=== PATIENT | female | born 1955 | race Caucasian/White ===

== ENCOUNTER 2016-12-16 12:47 | Inpatient (IN) | payer OTHER ==
[2016-12-16] VITALS (9 sets, daily range): BP systolic 176–212; BP diastolic 97–131; PULSE 81–113; RESP 18–35; O2SAT 92–100
[~2016-12-16] VITALS: Ht 157.5 cm; Wt 92.9 kg
--- NOTE | 2016-12-16 14:17 | ED.REPORT ---
HPI-Dyspnea / Wheezing Date of Service Dec 16, 2016 ED Provider: Rinku Francis Randy RIVERA Pt is a 61 y/o female w/ a hx of uncontrolled HTN, CVA, TIA, presenting to the ED c/o SOB onset 1 week ago. She c/o associated lower extremity edema, abdominal distention, dyspnea on exertion, orthopnea. She denies CP, abdominal pain, extremity pain, fever, chills, cough. She has no history of CAD or heart failure. She experienced a CVA years ago which was thought to be caused by uncontrolled hypertension. She was subsequently placed on antihypertensives but lost weight and took herself off of them. She does state that she has been very stressed recently. Nursing Notes Stated Complaint: SOB,BP HIGH Chief Complaint: Respiratory Distress Nursing Notes Reviewed: Yes Allergies: Coded Allergies: No Known Allergies (Unverified , 12/16/16) Scheduled Aspirin (Aspirin) 81 Mg Tablet 81 MG PO DAILY General Time Seen by MD: 14:15 Chief Complaint Shortness of breath Hx Obtained From: Patient Arrived By: Walk-in Sudden in Onset?: No Onset Occurred: 1 week ago Symptom Duration: Intermittent Severity: Current: No pain currently Severity: Maximum: No pain Similar Sx Previous: No Past Medical History Past Medical History TIA CVA Uncontrolled hypertension Past Surgical History Smoking History Never Smoker Social History Alcohol Use: Denies alcohol use Drug Use: Denies drug use Other Social History: Good social support Ambulatory Status Independent Review of Systems Constitutional: Denies: Chills, Fever Respiratory: Reports: Dyspnea on exertion, Shortness of breath, Denies: Non-productive cough Cardiovascular: Reports: Dyspnea on exertion, Edema, Orthopnea, Denies: Chest pain Musculoskeletal: Reports: Extremity swelling, Denies: Extremity pain Complete sys rev & neg: except as marked. GI: Denies: Abdominal pain, Diarrhea, Nausea, Vomiting Physical Exam Initial Vital Signs Vital Signs (First) Date Time Temp Pulse Resp B/P Pulse Ox O2 Delivery O2 Flow Rate FiO2 12/16/16 12:57 36.7 113 35 185/131 94 Room Air Initial VS: Reviewed, Vital signs abnormal Head / Eyes: Atraumatic, Normocephalic, PERRL ENT: Mucous membranes moist, Conjunctiva normal, No scleral icterus Extremities: Vascular intact, Neuro intact, No swelling, No tenderness Skin: Warm, Dry, No cyanosis Neurologic: Alert, Oriented, Nonfocal Psychiatric: Mood/affect normal, Behavior normal, Normal thought content General/Constitutional: Awake, Alert, No acute distress, Cooperative, Not toxic appearing Neck: Atraumatic, Supple, No meningismus, Full range of motion Respiratory / Chest: Atraumatic, No respiratory distress, No rhonchi, No wheezing, No retractions, No stridor, No chest tenderness, No chest wall deformity, No crepitus Bibasilar rales present Cardiovascular: Regular rhythm, No gallop, No rubs, Cap refill not delayed, Peripheral circulation NL Heart Rate / Rhythm: Positive: Tachycardia Heart Sounds / Murmur: Positive: Systolic murmur present.. (II/, left upper sternal border) Lower Ext Edema: Positive: Bilateral 3+, Pitting Edema extends to upper abdomen Abdomen: Atraumatic, Soft Bowel Sounds / Distention: Positive: Distention severe Interpretation & Diagnostics Lab Results Interpretation Result Diagram: 12/17/16 0612 12/17/16 0612 Test 12/16/16 14:47 12/16/16 17:50 Prothrombin Time 12.4sec (8.1-12.5) Prothromb Time International Ratio 1.16ratio Activated Partial Thromboplast Time 27.4sec (22.8-33.0) Total Bilirubin 1.2mg/dL (0.0-1.2) Aspartate Amino Transf (AST/SGOT) 22U/L (0-50) Alanine Aminotransferase (ALT/SGPT) 14U/L (0-32) Alkaline Phosphatase 97U/L (25-165) Total Protein 7.8g/dL (6.4-8.4) Albumin 3.8g/dL (3.4-5.0) Procalcitonin 0.06ng/mL (0.00-0.08) Thyroid Stimulating Hormone (TSH) 4.910uIU/mL (0.450-4.500) Hold Carpenter Top Tube Received (Received) Urine Color Dark yellow (YELLOW) Urine Appearance Hazy (CLEAR,HAZY) Urine pH 6.0 (5.0-8.0) Urine Specific [place] 1.030 (1.003-1.035) Urine Protein 100mg/dL (NEG,TRACE) Urine Glucose (UA) Negativemg/dL (NEGATIVE) Urine Ketones Tracemg/dL (NEGATIVE) Urine Occult Blood Small (NEGATIVE) Urine Nitrite Negative (NEGATIVE) Urine Bilirubin Negative (NEGATIVE) Urine Urobilinogen Normalmg/dL (NORMAL) Urine Leukocyte Esterase Small (NEGATIVE) Urine RBC 0-2/hpf (0-2) Urine WBC 0-5/hpf (0-5) Urine Epithelial Cells Few/hpf (NONE-MOD) Urine Crystals None seen (NONE SEEN) Urine Bacteria Few/hpf (NONE-FEW) Urine Hyaline Casts None/lpf (NONE) Urine Granular Casts None seen (NONE SEEN) Urine Waxy Casts None seen (NONE SEEN) Urine Red Blood Cell Casts None seen (NONE SEEN) Urine White Blood Cell Casts None seen (NONE SEEN) Urine Mucus Present (None Seen) Urine Trichomonas None seen (NONE SEEN) Urine Yeast None (NONE SEEN) Urinalysis Comment None Urine Culture Reflexed Indicated ECG Interpretation ECG Interpretation: Sinus tachycardia rate 105 LVH with secondary repol abnormality Anterior Q waves Time: 14:38 Interpreted by: ED physician Normal ECG Interpretation: No acute ischemic changes X-Ray Chest Interpretation Chest Xray Interpretation: IMPRESSION: Right lower lobe infiltrate with effusion. Pneumonia would be most likely. Followup to clearing to rule out underlying mass is suggested. Chest x-ray in 2 months would be useful. Dictated by: Toan Arias M.D. on 12/16/2016 at 15:34 Approved by: Toan Arias M.D. on 12/16/2016 at 15:35 View: Portable, 1 view Interpretation / Wet Read by: Interpret - Radiologist Re-Eval/Medical Decision Med Decision/Clinical Course 61-year-old female with a history of previous stroke and untreated hypertension (patient has not followed up with a provider after running out of her medications) presents with increasing shortness of breath and bilateral abdominal and lower extremity edema. She notes she is unable to sleep lying flat and admits to paroxysmal nocturnal dyspnea. Her chest x-ray, proBNP, and physical exam are all consistent with congestive heart failure. I advised the patient she will need to be admitted with an echocardiogram to further evaluate her heart and try to figure out why she developed this cardiomyopathy. Initially blood pressure was very elevated and she was treated with Nitropaste, lisinopril 40 mg, and Lasix 40 mg IV. I avoided beta blockers in the setting of acute heart failure. We do not have a previous record of what her kidney function is but it appears that she has acute kidney injury, likely secondary to congestive heart failure and decreased renal perfusion. Her troponin was elevated which I believe is related to CHF. EKG shows sinus tachycardia without evidence of ST changes. She is admitted for further evaluation and treatment. She is agreeable to admission Re-Evaluation/Progress : Time of Eval: 16:08 Re-Evaluation/Progress Note: Pt rechecked. Informed pt of need for admission. Pt understands and agrees with plan for admission. All questions addressed. Consultation : Referral / Consult Name: Joan Lawton DO Consulted With: Hospitalist Call Returned at: 18:16 [employer] And Drug Research Scientist: Will see patient, Agrees with eval, Agrees with plan, Accepts admit Counseled Regarding: Diagnosis, Lab results, Need for admission Discharge & Departure Impression: Primary Impression: New onset of congestive heart failure Additional Impressions: Anasarca MAURI (acute kidney injury) Elevated troponin Hypertensive urgency Disposition: ADMITTED TO HOSPITAL Discharge Condition All VS Reviewed: Yes Condition: Stable Referrals: NOPCP (PCP) Kentonibfarhan Attestation Portions of this note were transcribed by Manny Naylor. I, Dr. Francis personally performed the history, physical exam and medical decision-making; I reviewed and confirmed the accuracy of the information in the transcribed note. Signed by Ninoska Cao, 12/16/16 - 1530 Rinku Francis DO Dec 16, 2016 14:17 MANNY NAYLOR Dec 16, 2016 15:06 ECG Interpretation ECG Interpretation: Sinus tachycardia rate 105 LVH with secondary repol abnormality Anterior Q waves Time: 14:38 Interpreted by: ED physician Normal ECG Interpretation: No acute ischemic changes X-Ray Chest Interpretation Chest Xray Interpretation: IMPRESSION: Right lower lobe infiltrate with effusion. Pneumonia would be most likely. Followup to clearing to rule out underlying mass is suggested. Chest x-ray in 2 months would be useful. Dictated by: Toan Arias M.D. on 12/16/2016 at 15:34 Approved by: Toan Arias M.D. on 12/16/2016 at 15:35 View: Portable, 1 view Interpretation / Wet Read by: Interpret - Radiologist Re-Eval/Medical Decision Re-Evaluation/Progress : Time of Eval: 16:08 Re-Evaluation/Progress Note: Pt rechecked. Informed pt of need for admission. Pt understands and agrees with plan for admission. All questions addressed. Consultation : Referral / Consult Name: Joan Lawton DO Consulted With: Hospitalist Call Returned at: 18:16 Food And Drug Research Scientist: Will see patient, Agrees with eval, Agrees with plan, Accepts admit Counseled Regarding: Diagnosis, Lab results, Need for admission Discharge & Departure Impression: Primary Impression: New onset of congestive heart failure Additional Impressions: Anasarca MAURI (acute kidney injury) Elevated troponin Disposition: ADMITTED TO HOSPITAL Discharge Condition All VS Reviewed: Yes Condition: Stable Referrals: NOPCP (PCP) Scribe Attestation Portions of this note were transcribed by Manny Naylor. I, Dr. Francis personally performed the history, physical exam and medical decision-making; I reviewed and confirmed the accuracy of the information in the transcribed note. Signed by Ninoska Cao, 12/16/16 - [id number] Rinku Francis DO Dec 16, 2016 14:17 MANNY NAYLOR Dec 16, 2016 15:06
[2016-12-16 15:00] LABS: BASOPHILS % (AUTO) 0.7 % (0-3); EOSINOPHILS % (AUTO) 0.3 % (0-5); MONOCYTES % (AUTO) 6.4 % (4-12); Mean Corpuscular Volume 96.7 fL (81-100); NEUTROPHILS % (AUTO) 83.1 % (40-74); Platelet Count 223 bil/L (150-400)
[2016-12-16 15:28] LABS: TROPONIN T 0.032 ug/L (0.0-0.011)
--- NOTE | 2016-12-16 15:37 | DRSVH ---
PROCEDURE: X-RAY CHEST, TWO VIEWS ([id number]) INDICATIONS: Short of breath TECHNIQUE: 2 views of the chest were acquired. COMPARISON: None none available in the PACS system.. FINDINGS: Surgical changes and devices: None. Lungs and pleura: There is a small right pleural effusion. No effusion appreciated on the left. There is patchy density in the right lower lung field with loss of some aeration. The appearance would be most consistent with pneumonia. Pulmonary vasculature is considered normal. Left lung is considered c lear. Mediastinum: Mediastinal contours are normal. Heart size is enlarged. Bones and chest wall: No suspicious bony abnormalities. Soft tissues appear unremarkable. IMPRESSION: Right lower lobe infiltrate with effusion. Pneumonia would be most likely. Followup to cl earing to rule out underlying mass is suggested. Chest x-ray in 2 months would be useful. Dictated by: Toan Arias M.D. on 12/16/2016 at 15:34 Approved by: Toan Arias M.D. on 12/16/2016 at 15:35
[2016-12-16] MEDS ORDERED: Furosemide 10 mg/mL 4 mL Inj IVPUSH ONE (16:10)
[2016-12-16] MEDS ORDERED: ASPI-973 PO (17:38)
--- NOTE | 2016-12-16 17:39 | NUR ---
Admit/meds Pt. reports to taking a laxative a couple of days ago; does not recall the dose or name of drug. Pt. states that she has not had a BM for the last 3 days. Pt. did not bring any medications with her. Med rec completed.
[2016-12-16 18:01] LABS: APPEARANCE,URINE HAZY (CLEAR,HAZY); COLOR,URINE DARK YELLOW (YELLOW); OCCULT BLOOD,URINE SMALL (NEGATIVE)
[2016-12-16 18:02] LABS: UROBILINOGEN,URINE NORMAL (NORMAL)
[2016-12-16] MEDS ORDERED: Lisinopril 40 Tablet PO ONE (18:15)
[2016-12-16] MEDS ORDERED: Nitroglycerin 2% 1 Gm Ointment TOPICAL SCH (18:15)
[2016-12-16] MEDS ORDERED: Alum-Mag Hydrox-Simeth 30 mL Suspension PO PRN (18:20)
[2016-12-16] MEDS ORDERED: Ondansetron 2 mg/mL 2 mL Inj IVPUSH PRN (18:20)
[2016-12-16] MEDS ORDERED: Polyethylene Glycol (PEG) 17 Gm Powder PO PRN (18:40)
[2016-12-16] MEDS ORDERED: Senna-Docusate 8.6-50 mg Tablet PO PRN (18:40)
[2016-12-16 19:10] LABS: INR 1.16 ratio
--- NOTE | 2016-12-16 19:11 | PCM.HPMED ---
Subjective Date of Service Dec 16, 2016 Primary Provider: Admitting Physician: Joan Lawton DO Primary Care Physician: Tomy Wyatt MD Attending Physician: Joan Lawton DO Admit Status: From the Emergency Department Chief Complaint: Exertional Dyspnea History of Present Illness: Pt is a 61 y/o female w/ a hx of uncontrolled HTN, CVA, TIA, presenting to the ED c/o SOB onset 1 week ago. She is completely lost to follow up. She states she has to work 130-150 hrs a week to amke ends meet and has a lot of issues, mainly financial with her children. She c/o associated lower extremity edema, abdominal distention, dyspnea on exertion, orthopnea. She does admit to having a less intense version of these symptoms She denies CP, abdominal pain, extremity pain, fever, chills, cough. She has no history of CAD or heart failure. She experienced a CVA years ago which was thought to be caused by uncontrolled hypertension. She was subsequently placed on antihypertensives but lost weight and took herself off of them that same year. She does state that she has been very stressed recently. Her daughter is with a downs baby and daughter's significant other has no job. Last bowel movement was 3 days ago , normally she has them every two days. Denies urinary symptoms, chest pain. When asked if she had DM II, she stated "probably". She has no residual symptoms from her stroke (states she had a stroke, ignored itr and went to work and then had a second one at work ten years ago.) Patient had never smoked but did have second hand smoking exposure for several years. She luke snot drink or do drugs. In the eR, troponin was 0.032[place] [address].EKG showed sinus tach. Review of Systems: All ROS neg except as stated above Allergies Coded Allergies: No Known Allergies (Unverified , 12/16/16) PMH CVA, HTN, TIA Surgical History Social History Hx Alcohol Use: No Hx Substance Use: No Smoking Status: Never Smoker Living Arrangement: with Family Exam Vital Signs Vital Sign - Last Date Time Temp Pulse Resp B/P Pulse Ox O2 Delivery O2 Flow Rate FiO2 12/16/16 18:26 36.2 102 22 206/123 98 Room Air Exam General: NAD HEENT: NCAT Vasc: Anasarca throughout, mainly abdomen, pelvic area, peripheral Heart: regularly irregular, neg for murmurs Lungs:R sided crackles and rales, neg for wheezing Abd: extremely distended, normal bowel sounds Ext: Positive for non pitting edema Psych: Positive for anxiety Neuro: No focal deficits, CN II- XII grossly normal Lab and Diagnostics Result Diagram: 12/16/16 1447 12/16/16 1447 X-Rays, CTs and MRIs [facility] Diagnostic Imaging Department [facility] [address] Patient Name: LEISA SPENCER MR#: [id number] Location: SED Ordering Phys: DOC, ED MD Date of Service: 12/16/16 1416 PROCEDURE: X-RAY CHEST, TWO VIEWS ([id number]) INDICATIONS: Short of breath TECHNIQUE: 2 views of the chest were acquired. COMPARISON: None none available in the PACS system.. FINDINGS: Surgical changes and devices: None. Lungs and pleura: There is a small right pleural effusion. No effusion appreciated on the left. There is patchy density in the right lower lung field with loss of some aeration. The appearance would be most consistent with pneumonia. Pulmonary vasculature is considered normal. Left lung is considered clear. Mediastinum: Mediastinal contours are normal. Heart size is enlarged. Bones and chest wall: No suspicious bony abnormalities. Soft tissues appear unremarkable. IMPRESSION: Right lower lobe infiltrate with effusion. Pneumonia would be most likely. Followup to clearing to rule out underlying mass is suggested. Chest x- ray in 2 months would be useful. Dictated by: Toan Arias M.D. on 12/16/2016 at 15:34 Approved by: Toan Arias M.D. on 12/16/2016 at 15:35 12-lead ECG Sinus Tachy Assessment & Plan 61 yo WF with prev Stroke, TIA, HTN presents with Eelvated trops, Elevated BNP, HTN> 200/100, Anasarca, acute kidney injury Acute diagnoses POA: Acute renal injury: Monitor with AM labs, , unknown cause, will order FE Na. Likely pre-renal Acute Heart Failure of unkown type: -- Appears to be right sided, will diurese with Lasix 40 mg IV TID the goal of at least 2 L daily. She is given 40 mg in the ED, will give another 40 upon arrival to floor. -- Nitroglycerin bid paste, morphine 2 mg daily, morphine 4 hours when necessary for dyspnea, oxygen as needed, daily weights, accurate ins and outs, elevate head of the bed -- Echocardiogram ordered for tomorrow a.m. -- Trend troponins -- Telemonitoring -- fluid restriction of 1500 cc -- Lipid panel, A1c ordered: We will consider statin based on lipid panel -- Baseline ABG is ordered Anasarca -- Right sided heart failure vs. Liver failure, LFT are WNL. -- Continue to monitor -- Patient says she is starting to feel better Elevated troponins: These are liekly due to CHF -- Trend cardiac enzymes --Telemonitoring Acute hypertensive urgency: -- She is given lisinopril 20 mg in the emergency room by mouth -- Metoprolol 12.5 twice a day -- Continue lisinopril 20 mg daily Anxiety present at admission -- Morphine will help with this -- 1 time dose of Ativan 0.5 mg PO is given upon arrival to floor Chronic Diagnoses HTN: As above CVA: Will start statin as discussed above -- Continue daily aspirin CODE STATUS: CPR okay but she does not want mechanical ventilation Alternate decision-maker: Mom Pain Evaluation: Adequate Pain Control GI Prophylaxis: H2 sera Resuscitation Status: CPR: Attempt Resuscitation (does not want intubation or ventilaiton) Joan Lawton DO Dec 16, 2016 19:11
[2016-12-16 19:33] LABS: Magnesium 1.9 mg/dL (1.6-2.6)
[2016-12-16] MEDS ORDERED: Labetalol 5 mg/mL 4 mL Inj IVPUSH ONE (19:35)
[2016-12-16] MEDS: Furosemide 10 mg/mL 4 mL Inj IVPUSH SCH (19:57)
[2016-12-16] MEDS: Heparin 5,000 Unit/mL Inj SUBQ SCH (20:05)
[2016-12-16] MEDS ORDERED: LORazepam 0.5 mg Tablet PO ONE (21:05)
--- NOTE | 2016-12-16 21:28 | DRSVH ---
PROCEDURE: CT BRAIN WITHOUT CONTRAST ([id number]) INDICATIONS: hypertensive urgency TECHNIQUE: Noncontrast 4.5 mm thick angled axial sections acquired from the foramen magnum to the vertex, with c oronal reformats. COMPARISON: None. FINDINGS: Image quality: Good CSF spaces: Basal cisterns are patent. No extra-axial fluid collections. The ventricles are symmet paul in size and shape. Brain: No intracranial bleeds or masses. There is decreased attenuation in white matter with loss o f fenton-white junction interface and a portion of the right frontal lobe. This is consistent with old ischemic change. There is cerebral volume loss for age, with resultant ventricular and sulcal promine nce. There are periventricular and deep white matter chronic small vessel change with loss of fenton-w ngozi matter interface is present in the right frontal lobe and moderate amount of small vessel ischem ic change changes in white matter are present.. There is intracranial internal carotid artery athero sclerosis. Skull and face: Calvarium and visualized facial bones appear intact, without suspicious lesions. Sinuses: Visualized sinuses and mastoids are clear. IMPRESSION: No acute intracranial abnormality is seen. Dictated by: Toan Arias M.D. on 12/16/2016 at 21:24 Approved by: Toan Arias M.D. on 12/16/2016 at 21:27
--- NOTE | 2016-12-16 21:53 | ABG ---
DateTimeAnalyzed 21:50:00 -_ pH ____7.432 - 7.350 7.450 pCO2 ___38.5__ -mmHg 35.0 45.0 pO2 ___51.6__ -mmHg 69.0 116 HCO3- ___25.2__ -mmol/L 22.0 26.0 ABE ____1.4__ -mmol/L -2.0 2.0 tHb ___11.4__ -g/dL O2Hb ___85.6__ -% COHb ____1.7__ -% MetHb ____0.7__ -% sO2 ___87.7__ -% FIO2 ___21.0__ -% Drawn By MK - Date/Time Notified____ 21:52:00 -_ Notified By MK - Notified Whom Jaacob Miller RN -____ B 758 -mmHg tO2 ___13.8__ -Vol% Torsten test _Positive -
[2016-12-16] MEDS: Sodium Chloride LOK Flush 10 mL Syringe IVFLUSH SCH (22:28)
[2016-12-16 23:01] LABS: TROPONIN T 0.042 ug/L (0.0-0.011)
[2016-12-16 23:09] LABS: Creatine Kinase 108 U/L (21-215)
[2016-12-17] VITALS (9 sets, daily range): BP systolic 162–188; BP diastolic 81–94; PULSE 79–97; RESP 12–17; O2SAT 93–98
--- NOTE | 2016-12-17 03:43 | NUR ---
BP Pts BP was quite elevated on arrival to floor. Md ordered IV lasix, Po metoprolol, IV metoprolol, and IV Labetalol. Pts BP has decreased after receiving meds but has remained below 200/100. Last B/P was 163/86. Pt reports feeling immensely better than when she came in. Or first arriving to floor Pt was unable to find a comfortable position other than standing in the the tripod position. Now Pt is comfortable laying on her side on couch.
[2016-12-17 04:19] LABS: Creatine Kinase 116 U/L (21-215)
[2016-12-17 04:33] LABS: TROPONIN T 0.038 ug/L (0.0-0.011)
--- NOTE | 2016-12-17 04:37 | NUR ---
Critical Values Pts troponin peeked at 0.042 and trended down on 3rd draw to 0.038. CKMB also elevated at 5.5. Md notified.
[2016-12-17] MEDS: Heparin 5,000 Unit/mL Inj SUBQ SCH ×3 (05:03→20:17)
[2016-12-17 06:39] LABS: BASOPHILS % (AUTO) 1.1 % (0-3); EOSINOPHILS % (AUTO) 2.3 % (0-5); MONOCYTES % (AUTO) 10.4 % (4-12); Mean Corpuscular Hemoglobin 30.5 pg (27.0-35.0); Mean Corpuscular Volume 97.1 fL (81-100); NEUTROPHILS % (AUTO) 73.3 % (40-74); Platelet Count 176 bil/L (150-400)
[2016-12-17] MEDS ORDERED: Potassium Chloride 20 mEq SR Tablet PO ONE (07:35)
--- NOTE | 2016-12-17 08:34 | PCM.PNMED ---
Subjective Date of Service Dec 17, 2016 Subjective patient is feeling much better. Says she diuresed overnight well. c/o constipation, denies chest pain, abd pain. spent most of the night in couch. Left leg always been more swollen than the right. Renal function has taken a bit of hit after diuresis. CT of head without was negative for acute bleed last night. Exam Vital Signs Vital Sign - Last Date Time Temp Pulse Resp B/P Pulse Ox O2 Delivery O2 Flow Rate FiO2 12/17/16 06:27 97 12/17/16 05:01 36.7 16 170/89 96 Room Air Intake and Output 12/16/16 12/16/16 12/17/16 Cumulative From/Thru 15:00 23:00 07:00 12/16/16 12:57 - 12/17/16 06:53 Intake Total 200 ml 200 ml Output Total 400 ml 400 ml Balance -200 ml -200 ml Intake Oral 200 ml 200 ml Output Urine Total 400 ml 400 ml # Voids 10 10 Exam Gen.: No acute distress sitting on the couch HEENT: Normocephalic is dramatic , Neck : Right sided JVD, Extremities positive for edema Left Leg> Right, 2+ pitting in LE, Abdomen: improved abd distension, positive bowel sounds, Vascular: positive hepatojugular relux, heart regular, no s3/s4, lungs improved R>L IVs and Medications IV Fluids None Medications Reviewed: Medications were reviewed in detail Lab and Diagnostics Result Diagram: 12/17/1612 12/17/16 0612 X-Rays, CTs and MRIs [facility] Diagnostic Imaging Department [place], [place] [id number] Patient Name: LEISA SPENCER MR#: [id number] [place] [facility] [place] Phys: LOPEZ, PHILIPP CLEARY Date of Service: 12/16/16 1416 PROCEDURE: X-RAY CHEST, TWO VIEWS ([id number]) INDICATIONS: Short of breath TECHNIQUE: 2 views of the chest were acquired. COMPARISON: None none available in the PACS system.. FINDINGS: Surgical changes and devices: None. Lungs and pleura: There is a small right pleural effusion. No effusion appreciated on the left. There is patchy density in the right lower lung field with loss of some aeration. The appearance would be most consistent with pneumonia. Pulmonary vasculature is considered normal. Left lung is considered clear. Mediastinum: Mediastinal contours are normal. Heart size is enlarged. Bones and chest wall: No suspicious bony abnormalities. Soft tissues appear unremarkable. IMPRESSION: Right lower lobe infiltrate with effusion. Pneumonia would be most likely. Followup to clearing to rule out underlying mass is suggested. Chest x- ray in 2 months would be useful. Dictated by: Toan Arias M.D. on 12/16/2016 at 15:34 Approved by: Toan Arias M.D. on 12/16/2016 at 15:35 12-lead ECG Sinus Tachy Cardiac Echo Impressions Many of her echo reports as well as radiology reports are available in [employer] today later in the day talked to Dr. Massey, who has helped to fill in in this information as he read the echo earlier in the day. He states that echo showed ejection fraction of 35-40%, severe pulmonary hypertension Assessment & Plan 61 yo WF with prev Stroke, TIA, HTN presents with Eelvated trops, Elevated BNP, HTN> 200/100, Anasarca, acute kidney injury Acute diagnoses POA: Acute renal injury: Monitor with AM labs, , unknown cause, will order FE Na. Likely pre-renal Acute Heart Failure of unkown type: -- Appears to be right sided, will diurese with Lasix 40 mg IV TID the goal of at least 2 L daily. She is given 40 mg in the ED, will give another 40 upon arrival to floor. -- Nitroglycerin bid paste, morphine 2 mg daily, morphine 4 hours when necessary for dyspnea, oxygen as needed, daily weights, accurate ins and outs, elevate head of the bed -- Echocardiogram ordered for tomorrow a.m.: Results as above remarkable for pulmonary hypertension that is severe reduced ejection fraction 30-40%. -- Trend troponins: Slight elevation at baseline likely due to CHF and pulmonary hypertension -- Telemonitoring -- fluid restriction of 1500 cc -- Lipid panel, A1c ordered: We will consider statin based on lipid panel: Lipid panel actually looks pretty normal. Discussed the need for statin with Dr. Massey -- Baseline ABG is ordered: Showed no concern for carbon dioxide retention Anasarca due to liver disease versus CHF -- Right sided heart failure vs. Liver failure, LFT are WNL. -- Continue to monitor -- Patient says she is starting to feel better -- Ammonia levels were ordered came back elevated: Lactulose twice a day is ordered -- Hepatitis panel is ordered with results of pending -= INR is slightly elevated consider vitamin K -- CT of chest, abdomen, pelvis is ordered as well as ultrasound of abdomen, ascites protocol: Did not show much evidence of 2 much fluid recommendation for radiology. Unable to do IV contrast due to poor renal function unable to do by mouth contrast due to her fluid restriction The ascites likely secondary to fatty liver versus Wilson -- Hepatitis panel ordered -- LFTs are normal at the time of admission continue to monitor -- Monitor INR and consider vitamin K Hyperammonia syndrome: -- Lactulose is ordered as above Acute kidney failure: FENa lab work shows prerenal etiology -- Hold off on nephrotoxic medications, they no longer using enalapril at this point -- Continue to monitor with daily labs -- Consider consulting nephrology tomorrow a.m. as this may worsen due to continued diuresis Elevated troponins: These are liekly due to CHF -- Trend cardiac enzymes --Telemonitoring Acute hypertensive urgency: -- She is given lisinopril 20 mg in the emergency room by mouth: She did better on enalapril IV but currently holding off adam inhibitors due to poor renal function -- Metoprolol 25 mg twice a day -- Continue lisinopril 20 mg daily -- Spironolactone 25 mg daily -- Consult and cardiology and discussed the case with Dr. Massey recommends that we use hydralazine acutely to get her blood pressure down. We appreciate the recommendation hydralazine 25 mg every 6 hours when necessary with parameters ordered. Cardiology will see the patient tomorrow a.m. Present on admission severe pulmonary hypertension -- (This is per Dr. Massey report -- Continue hydralazine when necessary Anxiety present at admission -- Morphine will help with this -- 1 time dose of Ativan 0.5 mg PO is given upon arrival to floor Chronic Diagnoses HTN: As above CVA: Will start statin as discussed above -- Continue daily aspirin CODE STATUS: CPR okay but she does not want mechanical ventilation Alternate decision-maker: Mom Disposition: Patient is much improved today , discharge based on cardiology recommendations. GI Prophylaxis: H2 sera VTE Mechanical Devices: Intermittant Pneumatic CD Resuscitation Status: CPR: Attempt Resuscitation (does not want intubation or ventilaiton) Joan Lawton DO Dec 17, 2016 08:34
[2016-12-17 09:06] LABS: Creatine Kinase 101 U/L (21-215)
[2016-12-17] MEDS: Furosemide 10 mg/mL 4 mL Inj IVPUSH SCH ×3 (10:00→20:17)
[2016-12-17] MEDS: Sodium Chloride LOK Flush 10 mL Syringe IVFLUSH SCH ×2 (10:00→14:51)
[2016-12-17] MEDS: Nitroglycerin 2% 1 Gm Ointment TOPICAL SCH (10:00)
[2016-12-17 10:21] LABS: Unsaturated Iron Binding 277.7 ug/dL
--- NOTE | 2016-12-17 11:29 | NUR ---
Off unit Pt off unit to CT. consultant technology notified. Addendum: 12/17/16 at 1225 by CORBY LIZ RN Pt back on unit at 1140, electronic device monitor notified.
--- NOTE | 2016-12-17 11:40 | NUR ---
Social Work - Brief Note Data: EMR reviewed. Pt is a 61 y/o female admitted 12/16/16 for CHF exacerbation per H&P. Pt's insurance is [employer] and PCP is Tomy Wyatt MD. Pt resides at home with daughter and is independent with ADL's. Pt states she has information on DPOA/Advanced Care Directive and plans to provide a copy to the hospital when complete. Pt will discharge home via daughter. No needs assessed at this time. SW will continue to follow. Assessment: Pt who is independent at baseline. Plan: Pt likely to discharge home via POV with no needs, SW will continue to follow. DARIO Larson
--- NOTE | 2016-12-17 11:56 | DRSVH ---
PROCEDURE: US ABDOMEN ([id number]) INDICATIONS: ascites TECHNIQUE: Real-time scanning was performed of the abdominal and retroperitoneal organs, with image documentatio n. COMPARISON: None. FINDINGS: Liver: Liver is echogenic. No focal hepatic lesion. Liver is enlarged. Gallbladder: Gall bladder is contracted. Gallbladder wall measures 6 mm however this is technically i ndeterminate in the decompressed state. The patient was reportedly not n.p.o. at the time of examinat ion Biliary ducts: Intrahepatic bile ducts are non-dilated. Extrahepatic bile duct caliber measures 1-5 mm. Normal is 6-7 mm or less in diameter, or 10 mm or less post-cholecystectomy. Pancreas: Obscured by shadowing bowel gas Spleen: Spleen is normal in size and homogeneous in echotexture. Kidneys: Kidneys are normal in size and echotexture. Right kidney measures 9.6 cm long; left kidney measures 9.4 cm long. No hydronephrosis or nephrolithiasis. No solid masses. Aorta: Visualized aorta is normal in caliber at less than 3 cm. the mid and distal aorta are obscur ed by shadowing bowel gas Iliacs: Obscured by shadowing bowel gas IVC: Intrahepatic inferior vena cava is patent. Miscellaneous: There is minimal right upper quadrant and left upper quadrant ascites IMPRESSION: Suboptimal examination due to non-n.p.o. status, and shadowing bowel gas. Echogenic appearance of liver suggesting diffuse hepatocellular disease/fatty infiltration. Please co rrelate with LFTs Contracted gallbladder. There is wall thickening however this is technically indeterminate given deco mpressed status. If there is persistent clinical concern, a followup ultrasound after 8 hours n.p.o. status could be performed. Pancreas not sonographically well visualized therefore please correlate clinically and if needed with pancreatic enzymes. Dictated by: Heber Green M.D. on 12/17/2016 at 11:51 Approved by: Heber Green M.D. on 12/17/2016 at 11:55
--- NOTE | 2016-12-17 12:13 | DRSVH ---
PROCEDURE: CT CHEST, ABDOMEN AND PELVIS WITHOUT CONTRAST ([id number]) INDICATIONS: anasarca, unilateral edema, dyspnea TECHNIQUE: After the administration of oral contrast, 5 mm thick sections acquired from the lung apices to the s ymphysis pubis. 5 mm thick coronal and sagittal reformats acquired, with additional 7 mm coronal MIP reformats through the lungs. For radiation dose reduction, the following was used: automated expos ure control, adjustment of mA and/or kV according to patient size. COMPARISON: None. FINDINGS: Image quality: Excellent. CHEST: Lungs and pleura: Moderate right pleural effusion with adjacent atelectasis. There is patchy right ba silar atelectasis. No pneumothorax. Mediastinum: Heart size is enlarged. Mild pericardial effusion. Shotty mediastinal lymph nodes, tech nically nonspecific finding Thoracic aorta and central pulmonary arteries are normal in size. Esopha bashir is normal in caliber. No hiatal hernia. Chest wall: No axillary or supraclavicular adenopathy by size criteria. Thyroid gland unremarkable. ABDOMEN: Solid organs: Liver and spleen are normal in size. Gallbladder grossly unremarkable. Pancreas is n ormal in contours. No adrenal nodules. Both kidneys are normal in size, without hydronephrosis or n ephrolithiasis. Peritoneum and bowel: Small and large bowel loops are normal in caliber and wall thickness. Mild per ihepatic and perisplenic free fluid. No free air. Normal appendix Nodes and vessels: No retroperitoneal or mesenteric adenopathy by size criteria. Aorta unremarkable. Duplicated infrarenal IVC incidentally noted. Miscellaneous: No ventral hernias. There is severe diffuse body wall subcutaneous edema in keeping with third spacing/anasarca PELVIS: Genitourinary: Bladder wall thickness is normal. Miscellaneous: No inguinal hernias or adenopathy. Minimal pelvic free fluid Bones: No suspicious bony lesions. No vertebral body compression fractures. IMPRESSION: Cardiomegaly. Marked circumferential body wall subcutaneous edema, in keeping with third spacing/anasarca. Moderate right pleural effusion with adjacent atelectasis. Dictated by: Heber Green M.D. on 12/17/2016 at 12:06 Approved by: Heber Green M.D. on 12/17/2016 at 12:12
[2016-12-17] MEDS ORDERED: Lactulose 20 Gm/30 mL 30 mL Syrup PO SCH (14:30)
[2016-12-17] MEDS ORDERED: LORazepam 0.5 mg Tablet PO ONE (15:20)
[2016-12-17 15:49] LABS: Creatine Kinase 114 U/L (21-215)
--- NOTE | 2016-12-17 18:23 | NUR ---
BP/BM Pt has remained hypertensive throughout this shift. PRN Hydralazine given this evening, will monitor for effectiveness. Pt has not had a BM thus far, rec'd Senna and Lactulose PO this shift. Pt states she has no pain/discomfort. Currently sitting up in chair at bedside, visiting with family. Call light in reach.
[2016-12-17 18:43] LABS: INR 1.23 ratio
[2016-12-17] MEDS: Lactulose 20 Gm/30 mL 30 mL Syrup PO SCH (20:16)
[2016-12-17 21:42] LABS: Creatine Kinase 110 U/L (21-215)
[2016-12-18] VITALS (8 sets, daily range): BP systolic 110–186; BP diastolic 63–111; PULSE 66–85; RESP 15–18; O2SAT 91–100
--- NOTE | 2016-12-18 00:13 | NUR ---
CARE TRANSFERED TO [place]; at 2245.
[2016-12-18] MEDS: Sodium Chloride LOK Flush 10 mL Syringe IVFLUSH SCH ×3 (04:29→16:50)
[2016-12-18] MEDS: Heparin 5,000 Unit/mL Inj SUBQ SCH ×3 (04:29→21:15)
--- NOTE | 2016-12-18 05:46 | NUR ---
HTN; hypertensive this morning- Apresoline given= next shift to evaluate.
--- NOTE | 2016-12-18 05:58 | DRSVH ---
[facility] [address] [place] [address] Echocardiogram Report Name: LEISA SPENCER Study Date: 12/17/2016 Height: 62 in Hospital Exam Location: [facility] Weight: 229 lb Gender: Female BSA: 2.0 m2 : 1955 Age: 61 yrs BP: 170/89 mmHg Reason For Study: Congestive Heart Failure History: Uncontrolled hypertension Ordering Physician: HOSPITALIST [facility] Performed By: Mony Parisi Referring Physician: Dr. Tomy Wyatt Interpretation Summary 1) Moderate concentric left ventricular hypertrophy with mild enlargement and moderately reduced systolic functoin (EF 35-40%). 2) Global hypokinesis that appears worse in the inferior wall and inferolateral wall. 3) Mildly dilated right ventricle with mildly reduced function. 4) Severe left atrial enlargement and moderate right atrial enlargement. 5) Mild to moderate tricuspid regurgitation present. 6) Severe pulmonary hypertension, estimated systolic pressure of 75mmHg. 7) Elevated right sided filling pressures. 8) Calcific aortic root with atherosclerotic plaque noted in the aorta. 9) Small pericardial effusion noted but there are no echocardiographic indications of cardiac tamponade. 10) Significant hypertension present during the study (BP 170/89). 11) No prior Echo available for comparson. Procedure: A two-dimensional transthoracic echocardiogram with color flow and Doppler was performed. The study quality was technically adequate. Comparison is made with the echocardiogram of 06/07/2006. The patient was in normal sinus rhythm during the exam. Left Ventricle: The left ventricle is mildly dilated. There is moderate concentric left ventricular hypertrophy. There is no thrombus. The ejection fraction is estimated to be 35-40%. Left ventricular systolic function is moderately reduced. Global hypokinesis that appears worse in the inferior wall and inferolateral wall. Assessment of diastolic parameters suggests a pseudonormalization pattern, consistent with elevated filling pressures. Right Ventricle: The right ventricle is mildly dilated. Right ventricular systolic function is mildly reduced. Atria: The left atrium is severely dilated. The right atrium is moderately dilated. The interatrial septum is intact with no evidence for an atrial septal defect. Mitral Valve: There is mild to moderate mitral annular calcification. The mitral valve chordae are thickened and/or calcified. The mitral valve leaflets appear thickened, but open well. There is mild to moderate mitral regurgitation. Aortic Valve: The aortic valve opens well. There is no aortic valve stenosis. There is trace aortic regurgitation. Tricuspid Valve: The tricuspid valve is normal. There is mild tricuspid regurgitation. The right ventricular systolic pressure is estimated at 75 mmHg assuming a right atrial pressure of 15 mm Hg. Pulmonic Valve: The pulmonic valve leaflets are thin and pliable; valve motion is normal. There is trace pulmonic regurgitation. Great Vessels: The aortic root is normal size. There is aortic root sclerosis/calcification. Mild atherosclerotic plaque(s) in the ascending aorta. Mild atherosclerotic plaque(s) in the aortic arch. The IVC is dilated (diameter is greater than 2.1 cm) and it collapses less than 50% with a sniff. This suggests a high right atrial pressure of 15 mm Hg. Pericardium/ Pleura There is a small pericardial effusion noted. There are no echocardiographic indications of cardiac tamponade. MMode/2D Measurements & Calculations LVIDd: 5.6 cm LA dimension: 3.9 cm RA long axis LVOT diam: 2.3 cm LVIDs: 4.5 cm Ao root diam FS: 20.3 % LA A2 area: 24.8 cm RA area EPSS: 1.3 cm LA A4 area: 28.2 cm Aortic Jxn: 2.5 cm IVSd: 1.3 cm LA length (vol) : 21.7 cm asc Aorta Diam LVPWd: 1.4 cm RA vol LA vol: 98.5 ml : 73.5 ml Ao Arch Diam (Prox LA vol index RA Trans): 2.5 cm : 36.3 mm2 IVC diam: 2.7 cm LV mao. diameter/BSA LV sys. diameter/BSA RVD1 (basal) RVD2 (mid): 3.8 cm (cm/m^2): 2.8 (cm/m^2): 2.2 TAPSE: 1.7 cm Doppler Measurements & Calculations Ao V2 max MV E max jaiden MV E/A: 1.3 TR max jaiden : 180.1 cm/sec : 122.1 cm/sec Med Peak E' Jaiden : 388.1 cm/sec Ao max PG MV A max jaiden TR max PG : 13.0 mmHg : 93.2 cm/sec E/E' med: 27.9 : 60.2 mmHg Ao mean PG MV P1/2t: 44.7 msec Lat Peak E' Jaiden PA V2 max : 76.0 cm/sec LVOT Max Jaiden MR ERO: 0.07 cm2 E/E' lat: 31.8 PA mean PG : 91.1 cm/sec E/e' average: 29.9 MV A dur: 0.14 sec PA Accel Time NIRU(I,D): 2.3 cm : 0.13 sec sev ratio MV dec time MV P1/2t max jaiden Ao V2 mean LV V1 max PG : 0.15 sec : 121.8 cm/sec MVA(P1/2t): 4.9 cm2 Ao V2 VTI: 33.3 cm LV V1 VTI NIRU(V,D): 2.1 cm2 : 18.0 cm MR flow rate PA V2 mean NIRU indexed to BSA : 44.2 cm3/sec : 56.9 cm/sec (cm^2/m^2): 1.1 MR PISA radius Reading Physician:12:56 PM
[2016-12-18 06:33] LABS: EOSINOPHILS % (AUTO) 2.5 % (0-5); MONOCYTES % (AUTO) 10.3 % (4-12); Mean Corpuscular Hemoglobin 31.1 pg (27.0-35.0); Mean Corpuscular Volume 97.9 fL (81-100); NEUTROPHILS % (AUTO) 73.6 % (40-74); Platelet Count 164 bil/L (150-400)
[2016-12-18] MEDS: Furosemide 10 mg/mL 2 mL Inj IVPUSH SCH ×2 (08:00→21:17)
[2016-12-18] MEDS: Lactulose 20 Gm/30 mL 30 mL Syrup PO SCH ×2 (08:00→21:15)
[2016-12-18] MEDS: Nitroglycerin 2% 1 Gm Ointment TOPICAL SCH (08:01)
[2016-12-18 09:11] LABS: Hepatitis A Antibody IgM Negative (Negative); Hepatitis B Core Antibody IgM Negative (Negative)
--- NOTE | 2016-12-18 12:08 | NUR ---
Social Work - Readiness for Discharge Data: EMR reviewed. Pt is on day 2 of for CHF exacerbation per H&P. Per morning rounds pt is likely to discharge home tomorrow. Pt will discharge home via daughter. No needs assessed at this time. SW will continue to follow. Assessment: Pt who is independent at baseline. Plan: Pt likely to discharge home tomorrowvia POV with no needs, SW will continue to follow. DARIO Larson
--- NOTE | 2016-12-18 14:39 | CONS ---
[address] [address] CONSULTATION REPORT PATIENT: LEISA SPENCER : 1955 MR#: [id number] ADMIT: 12/16/2016 JOB ID: [id number] DATE OF SERVICE: The patient is a 61-year-old female, admitted with progressive anasarca and exertional dyspnea with symptoms of nocturnal pulmonary congestion with orthopnea and PND as well. She was seen in Urgent Care and referred to the emergency department where she was noted to have a prominent edema and symptomatic pulmonary congestion and severe hypertension and tachycardia. She was admitted to the hospital for further care, and I have been consulted to assist with her evaluation and management. The patient states that she was hospitalized 10 years ago with a stroke associated with left arm weakness and expressive aphasia. She actually earlier had a small stroke and then was admitted with a larger stroke and kept in the hospital at [facility] quite a while ago. She states that she was told it was related to severe hypertension and she was placed on antihypertensive therapy and states that chronic hypertension runs in her family. She was treated for a period of time but eventually ran out of her medications and no longer was seen in followup by her primary care doctor, and over the last 9-10 years, she has had untreated hypertension. She has not seen a physician and takes no medications. PAST MEDICAL HISTORY: Otherwise is notable for history of . REVIEW OF SYSTEMS: Is notable for the absence of recurrent stroke or TIA-like symptoms. She has no history of anginal chest discomfort or symptomatic claudication. SOCIAL HISTORY: The patient is a nonsmoker. She lives with her daughter and states that her daughter will be a very good person to assist with her diet and medical management. 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 Up until one or two weeks ago, she seemed to be able to get around okay and it has just been in the last few weeks that she has noticed progressive anasarca and dyspnea. PHYSICAL EXAMINATION: Shows a 61-year-old female who is obese and appears older than her stated age. She is edentulous. She is 5 feet 2 inches tall and weighs 210 pounds with a body mass index of 42. HEENT examination: Otherwise unremarkable, other than her absence of teeth. Jugular venous distention is identified with the patient sitting to the angle of the jaw. Lung cuellar demonstrate decreased breath sounds, particularly on the right side. I do not hear any obvious rales or wheezing currently: She is not dyspneic at rest but is dyspneic getting onto the bed and lying down in an orthopneic position. Her cardiac examination is notable for a regular rhythm with a soft apical S4 gallop. I do not hear any cardiac murmurs and S2 is physiologically split. Abdomen is moderately tense and somewhat distended with obvious ascites. She has pitting edema up to her armpits. She has prominent lower extremity edema, but the skin appears healthy. Her distal pedal pulses are palpable. No focal neurologic findings noted. LABORATORY DATA: Notable for potassium of 3.6 on admission, dropping to 3.1 and now 3.4. Her creatinine on admission was 1.36, and that has varied between 1.36 and 1.53. Estimated GFR 50-55. Sodium is normal. Liver function tests are normal. CKs are normal. Troponin is abnormal at 0.03-0.042. TSH is slightly elevated at 4.9. BNP is markedly elevated at 17,000. A 12-lead EKG shows left ventricular hypertrophy with diffuse nonspecific ST and T-wave findings. Chest x-ray is consistent with bilateral pleural effusions, cardiomegaly, and pulmonary congestion. CT scan of the chest and abdomen demonstrate pleural effusions and ascites. There is a modest or mild amount of aortic atherosclerotic calcification and scant coronary calcification. Her renal arteries look normal and she has two kidneys. Echocardiogram is reviewed and demonstrates left ventricular hypertrophy with mild to moderate left ventricular systolic dysfunction. My estimate of the ejection fraction was around 40% and there does appear to be posterior and posterolateral hypokinesis that appears somewhat more prominent. There is evidence of moderate atrial enlargement and moderately severe pulmonary hypertension with moderate right ventricular systolic dysfunction as well. Small pericardial effusion is noted without any hemodynamic effects. IMPRESSION: This patient's clinical presentation is consistent with biventricular heart failure related to untreated chronic severe hypertension. Troponin is consistent with that and does not imply an acute coronary syndrome. She has opacity of calcific atherosclerosis noted on her CT scan and it is my feeling that it is unlikely that ischemic heart disease plays a role, although there does appear to be moderate hypokinesis inferiorly and eventually an ischemic evaluation will need to be undertaken, but this will be after her blood pressure is adequately treated. From a medication standpoint, I am going to recommend that we change her to carvedilol at 25 mg b.i.d., which will be a little bit better in terms of affecting her blood pressure. Despite her creatinine of 1.5 or 1.4, there is no reason she will not tolerate PRINCE inhibitor and this should be started. She does not have renal vascular disease and I would anticipate that she will tolerate PRINCE inhibitor just fine without problems and this will help her potassium as well. A beta sera and PRINCE inhibitor and a diuretic, I think, are flores for her blood pressure. She should be on aspirin daily and she should be on a statin given her atherosclerosis and potential for underlying ischemic heart disease. I have stressed to this patient the importance of regular medical followup and compliance with her medications and she seems motivated to do so. I am going to go ahead and make some adjustments to her medications and will follow up briefly tomorrow. Her ischemic evaluation again is something that can wait until she is ready to be discharged but should be done before she is discharged home.
[2016-12-18] MEDS: Potassium Chloride 20 mEq SR Tablet PO SCH (17:40)
[2016-12-19] VITALS (8 sets, daily range): BP systolic 113–143; BP diastolic 68–77; PULSE 51–70; RESP 18–22; O2SAT 94–97
[2016-12-19] MEDS: Sodium Chloride LOK Flush 10 mL Syringe IVFLUSH SCH ×3 (00:26→16:25)
--- NOTE | 2016-12-19 01:05 | PCM.PNMED ---
Subjective Date of Service Dec 19, 2016 Subjective Patient is beginning to feel better however she states she is continuing to take frequent trips to the bathroom. She is able to move better with much less edema. She states that she has lost 22 pounds since admission. Exam Vital Signs Vital Sign - Last Date Time Temp Pulse Resp B/P Pulse Ox O2 Delivery O2 Flow Rate FiO2 12/19/16 00:27 36.6 56 22 126/72 94 Nasal Cannula 2.00 Intake and Output 12/18/16 12/18/16 12/19/16 Cumulative From/Thru 15:00 23:00 07:00 12/16/16 12:57 - 12/18/16 18:49 Intake Total 990 ml 2280 ml Output Total 1500 ml 7575 ml Balance -510 ml -5295 ml Intake Oral 990 ml 2280 ml Output Urine Total 1500 ml 7575 ml # Voids 10 # Bowel Movements 0 1 Exam General: Patient is sitting up in a bedside chair. She is in no apparent distress. HEENT: Head is atraumatic and normocephalic. Eyes: Pupils are equally round and reactive to light and accommodation. Extraocular muscles are intact. Sclera are white, anicteric. Subconjunctival mucosa is pink. Ears and nose are unremarkable. Oropharynx: There is no mucosal lesions, there is no thrush, there is no pharyngitis. Neck: Is supple, there are no nodes, or masses or tenderness. Chest: Is clear to auscultation and percussion and decreased breath sounds bilaterally. There are no rales, rhonchi, wheezes or rubs appreciated. Heart: Rate, rhythm is regular. There is no new murmur, rub or gallop. However , heart tones are distant. Abdomen: Good bowel sounds are present. Abdomen is soft, nontender, no organomegaly or masses were appreciated. Extremities: Are symmetrical and well perfused. There is decreasing edema, there is no cellulitis, no rash. Neurologic: There are no focal neurological deficits. Cranial nerves II through XII are intact. There are no sensory or motor deficits. Psychiatric: Patients mood is calm and shows no sign of agitation. Genital: Deferred Rectal: Deferred Lab and Diagnostics Result Diagram: 12/18/16 0550 12/18/16 0550 X-Rays, CTs and MRIs [facility] [place] [address] Patient Name: LEISA SPENCER MR#: [id number] [place] [facility] [place] Phys: PHILIPP MARROQUIN MD Date of Service: 12/16/16 1416 PROCEDURE: X-RAY CHEST, TWO VIEWS ([id number]) INDICATIONS: Short of breath TECHNIQUE: 2 views of the chest were acquired. COMPARISON: None none available in the PACS system.. FINDINGS: Surgical changes and devices: None. Lungs and pleura: There is a small right pleural effusion. No effusion appreciated on the left. There is patchy density in the right lower lung field with loss of some aeration. The appearance would be most consistent with pneumonia. Pulmonary vasculature is considered normal. Left lung is considered clear. Mediastinum: Mediastinal contours are normal. Heart size is enlarged. Bones and chest wall: No suspicious bony abnormalities. Soft tissues appear unremarkable. IMPRESSION: Right lower lobe infiltrate with effusion. Pneumonia would be most likely. Followup to clearing to rule out underlying mass is suggested. Chest x- ray in 2 months would be useful. Dictated by: Toan Arias M.D. on 12/16/2016 at 15:34 Approved by: Toan Arias M.D. on 12/16/2016 at 15:35 12-lead ECG Sinus Tachy Cardiac Echo Impressions Echocardiogram Report Name: LEISA SPENCER Study Date: 12/17/2016 Height: 62 in Hospital Exam Location: [facility] Weight: 229 lb Gender: Female BSA: 2.0 m2 : 1955 Age: 61 yrs BP: 170/89 mmHg Reason For Study: Congestive Heart Failure History: Uncontrolled hypertension Ordering Physician: HOSPITALIST [facility] Performed By: Mony Parisi Referring Physician: Dr. Tomy Wyatt Interpretation Summary 1) Moderate concentric left ventricular hypertrophy with mild enlargement and moderately reduced systolic functoin (EF 35-40%). 2) Global hypokinesis that appears worse in the inferior wall and inferolateral wall. 3) Mildly dilated right ventricle with mildly reduced function. 4) Severe left atrial enlargement and moderate right atrial enlargement. 5) Mild to moderate tricuspid regurgitation present. 6) Severe pulmonary hypertension, estimated systolic pressure of 75mmHg. 7) Elevated right sided filling pressures. 8) Calcific aortic root with atherosclerotic plaque noted in the aorta. 9) Small pericardial effusion noted but there are no echocardiographic indications of cardiac tamponade. 10) Significant hypertension present during the study (BP 170/89). 11) No prior Echo available for comparson. Assessment & Plan The patient is a 61 yo white female with history of a previous Stroke, TIA and HTN who presents with elvated troponins, Elevated BNP, and HTN with a blood pressure> 200/100, she also presented with anasarca and acute kidney injury. # Acute renal injury: Present at the time of admission - Monitor with AM labs, , unknown cause, will order FE Na. - Likely pre-renal # Acute combined systolic and diastolic Congestive Heart Failure -- Appears to be right sided, will diurese with Lasix 40 mg IV TID the goal of at least 2 L daily. She is given 40 mg in the ED, will give another 40 upon arrival to floor. -- Nitroglycerin bid paste, morphine 2 mg daily, morphine 4 hours when necessary for dyspnea, oxygen as needed, daily weights, accurate ins and outs, elevate head of the bed -- Echocardiogram.: Results as above remarkable for pulmonary hypertension that is severe reduced ejection fraction 30-40%. -- Troponins: Are trending downward. The slight elevation from baseline likely due to ARF, CHF and pulmonary hypertension -- Continue Telemonitoring -- A fluid restriction of 1500 cc given -- Lipid panel, A1c ordered: We will consider statin based on lipid panel: Lipid panel actually looks pretty normal. Discussed the need for statin with Dr. Massey -- Baseline ABG is ordered: Showed no concern for carbon dioxide retention #Anasarca due to liver disease versus CHF -- Right sided heart failure vs. Liver failure, LFT are WNL. -- Continue to monitor -- Patient says she is starting to feel better -- Ammonia levels were ordered came back elevated: Lactulose twice a day is ordered -- Hepatitis panel is ordered with results of pending -= INR is slightly elevated consider vitamin K -- CT of chest, abdomen, pelvis is ordered as well as ultrasound of abdomen, ascites protocol: Did not show much evidence of 2 much fluid recommendation for radiology. Unable to do IV contrast due to poor renal function unable to do by mouth contrast due to her fluid restriction The ascites likely secondary to fatty liver versus Wilson -- Hepatitis panel ordered -- LFTs are normal at the time of admission continue to monitor -- Monitor INR and consider vitamin K Hyperammonia syndrome: -- Lactulose is ordered as above Acute kidney failure: FENa lab work shows prerenal etiology -- Hold off on nephrotoxic medications, they no longer using enalapril at this point -- Continue to monitor with daily labs -- Consider consulting nephrology tomorrow a.m. as this may worsen due to continued diuresis Elevated troponins: These are liekly due to CHF and ARF -- Trend cardiac enzymes --Telemonitoring Acute hypertensive urgency: -- She is given lisinopril 20 mg in the emergency room by mouth: She did better on enalapril IV but currently holding off adam inhibitors due to poor renal function -- Metoprolol 25 mg twice a day -- Continue lisinopril 20 mg daily -- Spironolactone 25 mg daily -- Consult and cardiology and discussed the case with Dr. Massey recommends that we use hydralazine acutely to get her blood pressure down. We appreciate the recommendation hydralazine 25 mg every 6 hours when necessary with parameters ordered. Cardiology consult obtained today with Dr. Maximo Hickman and appreciate and will follow his recommendations. Present on admission severe pulmonary hypertension -- (This is per Dr. Massey report -- Continue hydralazine when necessary Anxiety present at admission -- Morphine will help with this -- 1 time dose of Ativan 0.5 mg PO is given upon arrival to floor Chronic Diagnoses HTN: As above CVA: Will start statin as discussed above -- Continue daily aspirin CODE STATUS: CPR okay but she does not want mechanical ventilation Alternate decision-maker: Mom Disposition: Patient is much improved today , discharge based on cardiology recommendations. GI Prophylaxis: H2 sera VTE Mechanical Devices: Venous Foot Pump Resuscitation Status: CPR: Attempt Resuscitation (does not want intubation or ventilaiton) Nash Carrasquillo MD Dec 19, 2016 01:05
[2016-12-19] MEDS: Heparin 5,000 Unit/mL Inj SUBQ SCH ×3 (04:39→21:12)
--- NOTE | 2016-12-19 04:50 | NUR ---
PT ACTIVITY/BLOOD PRESSURES Pt has slept on pull out couch in room. Pt finds this position is easier for her to get in and out of, to go to the BR. Pt has denied any pains or discomforts. Pts BP have been significantly improved tonight than previous days. SBP consistently 120s. Continue to monitor. Call light in reach. Intentional rounding.
[2016-12-19 06:19] LABS: BASOPHILS % (AUTO) 0.6 % (0-3); EOSINOPHILS % (AUTO) 2.9 % (0-5); MONOCYTES % (AUTO) 11.2 % (4-12); Mean Corpuscular Hemoglobin 29.9 pg (27.0-35.0); Mean Corpuscular Volume 98.8 fL (81-100); Platelet Count 137 bil/L (150-400)
[2016-12-19 07:36] LABS: Magnesium 1.6 mg/dL (1.6-2.6); Phosphorus 3.9 mg/dL (2.5-4.9)
[2016-12-19] MEDS: Lactulose 20 Gm/30 mL 30 mL Syrup PO SCH ×2 (07:58→21:12)
[2016-12-19] MEDS: Furosemide 10 mg/mL 2 mL Inj IVPUSH SCH (07:59)
[2016-12-19] MEDS: Potassium Chloride 20 mEq SR Tablet PO SCH ×2 (07:59→17:13)
[2016-12-19] MEDS: Nitroglycerin 2% 1 Gm Ointment TOPICAL SCH (08:05)
[2016-12-19 09:14] LABS: Vitamin B12 712 pg/mL (211-946)
--- NOTE | 2016-12-19 16:57 | PROG NOTE ---
[address] [address] PROGRESS NOTE PATIENT: LEISA SPENCER : 1955 MR#: [id number] ADMIT: 12/16/2016 JOB ID: [id number] DATE: 12/19/2016 The patient has responded very well to medical therapy with a nice reduction in her blood pressure. Carvedilol surprisingly has reduced her heart rate from the low 100s down into the 50s. I am comfortable with her current heart rate and blood pressure but if her pulse were to significantly lower farther, then I think it would be reasonable to cut the carvedilol in half. She is diuresing well though she continues to show evidence of significant jugular venous distention on exam, with a jugular venous pulse visible at about the mid neck with her sitting 90 degrees upright. She continues to show 2 to 3+ lower extremity edema and some degree of flank edema and probably mild ascites as well. Her breathing seems improved, though she continues to wear oxygen. My recommendations today are to stick with her current medications. I think she has got probably another 15 or 20 pounds of edema fluid but I think if she is doing well and continues to improve, she can probably be discharged home tomorrow afternoon. I would like to see her tomorrow before she is discharged. She has an appointment on with Dr. Wyatt to establish as primary care and is anxious to return to work. I am going to change her diuretics to torsemide 20 mg a day starting tomorrow morning.
--- NOTE | 2016-12-19 17:14 | NUR ---
Social Work - Brief note Per morning rounds pt will require IVABX at discharge. SW choiced pt for IVABX providers and she stated she has no preference. UR specialist will send referral to [facility] per rotating calendar. DARIO Larson
[2016-12-19] MEDS ORDERED: Furosemide 10 mg/mL 2 mL Inj IVPUSH SCH (20:30)
[2016-12-19] MEDS ORDERED: LORazepam 0.5 mg Tablet PO ONE (21:30)
--- NOTE | 2016-12-19 23:34 | PCM.PNMED ---
Subjective Date of Service Dec 19, 2016 Subjective The patient continues to feel that she has too much edema. However, she is feeling much more comfortable and is pleased with the results of her diuresis. She has no other new complaints. Exam Vital Signs Vital Sign - Last Date Time Temp Pulse Resp B/P Pulse Ox O2 Delivery O2 Flow Rate FiO2 12/19/16 21:40 Supplement Oxygen 12/19/16 20:57 36.5 55 18 113/73 97 2.00 Intake and Output 12/18/16 12/18/16 12/19/16 Cumulative From/Thru 15:00 23:00 07:00 12/16/16 12:57 - 12/19/16 06:09 Intake Total 990 ml 270 ml 2550 ml Output Total 1500 ml 1850 ml 9425 ml Balance -510 ml -1580 ml -6875 ml Intake Oral 990 ml 270 ml 2550 ml Output Urine Total 1500 ml 1850 ml 9425 ml # Voids 10 # Bowel Movements 0 1 Exam General: Patient is sitting up in a bedside chair. She is in no apparent distress. HEENT: Head is atraumatic and normocephalic. Eyes: Pupils are equally round and reactive to light and accommodation. Extraocular muscles are intact. Sclera are white, anicteric. Subconjunctival mucosa is pink. Ears and nose are unremarkable. Oropharynx: There is no mucosal lesions, there is no thrush, there is no pharyngitis. Neck: Is supple, there are no nodes, or masses or tenderness. Chest: Is clear to auscultation and percussion and decreased breath sounds bilaterally. There are no rales, rhonchi, wheezes or rubs appreciated. Heart: Rate, rhythm is regular. There is no new murmur, rub or gallop. However , heart tones are distant. Abdomen: Good bowel sounds are present. Abdomen is obese, soft, nontender, no organomegaly or masses were appreciated. Extremities: Are symmetrical and well perfused. There continues to be decreasing edema, there is no cellulitis, no rash. Neurologic: There are no focal neurological deficits. Cranial nerves II through XII are intact. There are no sensory or motor deficits. Psychiatric: Patients mood is calm and shows no sign of agitation. Genital: Deferred Rectal: Deferred Lab and Diagnostics Result Diagram: 12/19/16 0545 12/19/1645 X-Rays, CTs and MRIs [facility] Diagnostic Imaging [place] [address] Patient Name: LEISA SPENCER MR#: [id number] [place] [facility] [place]ing Phys: PHILIPP MARROQUIN MD Date of Service: 12/16/16 1416 PROCEDURE: X-RAY CHEST, TWO VIEWS ([id number]) INDICATIONS: Short of breath TECHNIQUE: 2 views of the chest were acquired. COMPARISON: None none available in the PACS system.. FINDINGS: Surgical changes and devices: None. Lungs and pleura: There is a small right pleural effusion. No effusion appreciated on the left. There is patchy density in the right lower lung field with loss of some aeration. The appearance would be most consistent with pneumonia. Pulmonary vasculature is considered normal. Left lung is considered clear. Mediastinum: Mediastinal contours are normal. Heart size is enlarged. Bones and chest wall: No suspicious bony abnormalities. Soft tissues appear unremarkable. IMPRESSION: Right lower lobe infiltrate with effusion. Pneumonia would be most likely. Followup to clearing to rule out underlying mass is suggested. Chest x- ray in 2 months would be useful. Dictated by: Toan Arias M.D. on 12/16/2016 at 15:34 Approved by: Toan Arias M.D. on 12/16/2016 at 15:35 12-lead ECG Sinus Tachy Cardiac Echo Impressions Echocardiogram Report Name: LEISA SPENCER Study Date: 12/17/2016 Height: 62 in Hospital Exam Location: [facility] Weight: 229 lb Gender: Female BSA: 2.0 m2 : 1955 Age: 61 yrs BP: 170/89 mmHg Reason For Study: Congestive Heart Failure History: Uncontrolled hypertension Ordering Physician: HOSPITALIST [facility] Performed By: Mony Parisi Referring Physician: Dr. Tomy Wyatt Interpretation Summary 1) Moderate concentric left ventricular hypertrophy with mild enlargement and moderately reduced systolic functoin (EF 35-40%). 2) Global hypokinesis that appears worse in the inferior wall and inferolateral wall. 3) Mildly dilated right ventricle with mildly reduced function. 4) Severe left atrial enlargement and moderate right atrial enlargement. 5) Mild to moderate tricuspid regurgitation present. 6) Severe pulmonary hypertension, estimated systolic pressure of 75mmHg. 7) Elevated right sided filling pressures. 8) Calcific aortic root with atherosclerotic plaque noted in the aorta. 9) Small pericardial effusion noted but there are no echocardiographic indications of cardiac tamponade. 10) Significant hypertension present during the study (BP 170/89). 11) No prior Echo available for comparson. Assessment & Plan The patient is a 61 yo white female with history of a previous Stroke, TIA and HTN who presents with elvated troponins, Elevated BNP, and HTN with a blood pressure> 200/100, she also presented with anasarca and acute kidney injury. # Acute combined systolic and diastolic Congestive Heart Failure, present at the time of admission. Ongoing and improving -- Appears to be right sided, will diurese with Lasix 40 mg IV TID the goal of at least 2 L daily. She is given 40 mg in the ED, will give another 40 upon arrival to floor. -- Nitroglycerin bid paste, morphine 2 mg daily, morphine 4 hours when necessary for dyspnea, oxygen as needed, daily weights, accurate ins and outs, elevate head of the bed -- Echocardiogram.: Results as above remarkable for pulmonary hypertension that is severe reduced ejection fraction 30-40%. -- Troponins: Are trending downward. The slight elevation from baseline likely due to ARF, CHF and pulmonary hypertension -- Continue Telemonitoring -- A fluid restriction of 1500 cc given -- Lipid panel, A1c ordered: We will consider statin based on lipid panel: Lipid panel actually looks pretty normal. Discussed the need for statin with Dr. Massey -- Baseline ABG is ordered: Showed no concern for carbon dioxide retention # Acute renal injury: Present at the time of admission . Ongoing and stable - Monitor with AM labs, , unknown cause, will order FE Na. - Likely pre-renal # Anasarca due to liver disease versus CHF or both. -- Right sided heart failure vs. Liver failure, LFT are WNL. -- Continue to monitor -- Patient says she is starting to feel better -- Ammonia levels were ordered came back elevated: Lactulose twice a day is ordered -- Hepatitis panel is ordered with results of pending -= INR is slightly elevated consider vitamin K -- CT of chest, abdomen, pelvis is ordered as well as ultrasound of abdomen, ascites protocol: Did not show much evidence of 2 much fluid recommendation for radiology. Unable to do IV contrast due to poor renal function unable to do by mouth contrast due to her fluid restriction The ascites likely secondary to fatty liver versus Wilson -- Hepatitis panel ordered -- LFTs are normal at the time of admission continue to monitor -- Monitor INR and consider vitamin K Hyperammonia syndrome: -- Lactulose is ordered as above Acute kidney failure: FENa lab work shows prerenal etiology -- Hold off on nephrotoxic medications, they no longer using enalapril at this point -- Continue to monitor with daily labs -- Consider consulting nephrology tomorrow a.m. as this may worsen due to continued diuresis Elevated troponins: These are liekly due to CHF and ARF -- Trend cardiac enzymes --Telemonitoring Acute hypertensive urgency: -- She is given lisinopril 20 mg in the emergency room by mouth: She did better on enalapril IV but currently holding off adam inhibitors due to poor renal function -- Metoprolol 25 mg twice a day -- Continue lisinopril 20 mg daily -- Spironolactone 25 mg daily -- Consult and cardiology and discussed the case with Dr. Massey recommends that we use hydralazine acutely to get her blood pressure down. We appreciate the recommendation hydralazine 25 mg every 6 hours when necessary with parameters ordered. Cardiology consult obtained today with Dr. Maximo Hickman and appreciate and will follow his recommendations. Present on admission severe pulmonary hypertension -- (This is per Dr. Massey report -- Continue hydralazine when necessary Anxiety present at admission -- Morphine will help with this -- 1 time dose of Ativan 0.5 mg PO is given upon arrival to floor HTN: As above History of CVA: -- Will statin as discussed above -- Continue daily aspirin CODE STATUS: CPR okay but she does not want mechanical ventilation Alternate decision-maker: Mom Disposition: Patient is much improved today , discharge based on cardiology recommendations. Pain Evaluation: Adequate Pain Control GI Prophylaxis: H2 sera VTE Mechanical Devices: Venous Foot Pump Resuscitation Status: CPR: Attempt Resuscitation (does not want intubation or ventilaiton) Nash Carrasquillo MD Dec 19, 2016 23:34
[2016-12-20] VITALS (9 sets, daily range): BP systolic 123–136; BP diastolic 67–79; PULSE 57–66; RESP 18–20; O2SAT 94–98
[2016-12-20] MEDS: Sodium Chloride LOK Flush 10 mL Syringe IVFLUSH SCH ×4 (00:44→23:55)
--- NOTE | 2016-12-20 04:25 | NUR ---
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 RN went in to assess pt. Pt having some anxiety, RN inquired if pt had taken anything that worked for pt. Pt stated "0.5 of lorazepam had worked well before." Noc hospitalist paged, rec'd orders for one time dose of lorazepam 0.5mg PO. Dose given, pt able to sleep, anxiety relieved. Continue to monitor. Call light in reach. Intentional rounding.
[2016-12-20] MEDS: Heparin 5,000 Unit/mL Inj SUBQ SCH ×3 (05:41→20:53)
[2016-12-20] MEDS: Lactulose 20 Gm/30 mL 30 mL Syrup PO SCH ×2 (08:05→20:53)
[2016-12-20] MEDS: Potassium Chloride 20 mEq SR Tablet PO SCH (08:05)
[2016-12-20] MEDS: Nitroglycerin 2% 1 Gm Ointment TOPICAL SCH (08:07)
[2016-12-20 09:36] LABS: BASOPHILS % (AUTO) 0.6 % (0-3); EOSINOPHILS % (AUTO) 1.9 % (0-5); MONOCYTES % (AUTO) 10.3 % (4-12); Mean Corpuscular Hemoglobin 30.8 pg (27.0-35.0); NEUTROPHILS % (AUTO) 76.9 % (40-74); Platelet Count 145 bil/L (150-400)
[2016-12-20 10:18] LABS: Magnesium 1.8 mg/dL (1.6-2.6)
--- NOTE | 2016-12-20 21:46 | PROG NOTE ---
[address] [address] PROGRESS NOTE PATIENT: LEISA SPENCER : 1955 MR#: [id number] ADMIT: 12/16/2016 JOB ID: [id number] DATE: 12/20/2016 The patient is a 61-year-old female who presented with anasarca and pulmonary congestion related to severe hypertensive cardiomyopathy. She has evidence of probable hypertensive nephrosclerosis as well with a stable creatinine of around 1.5. She has responded very nicely to medical therapy with 12 kg fluid weight loss and normalization of her blood pressure fairly quickly. She is feeling better, but has yet to be ambulatory out of the room and has continued to wear a nasal cannula at 2 L/minute. EXAM: Today, she continues to show evidence of jugular venous distention with a jugular venous pulse in the lower end of her neck with somewhat prominent V waves noted in the sitting position. Lung cuellar are clear without rales or wheezes. Cardiac examination is notable for a somewhat prominent 2nd heart sound and a very soft apical S4 gallop. Distal extremities continued to show 2 to 3+ pitting pedal edema to the thighs. LABORATORY DATA: Shows that she is anemic with a hemoglobin of 10.4, platelet count borderline low. Chemistries demonstrate a stable hematocrit of around 1.5. Her potassium is increased now to 4.4. BNP is improved. IMPRESSION: The patient has significant hypertensive cardiomyopathy as well as nephrosclerosis and is currently on good medical therapy with a very nice reduction in her blood pressure. I am going to suggest that we cut back on her amlodipine which can aggravate her peripheral edema and increase her torsemide to 40 mg daily. I am also going to discontinue her spironolactone. Her potassium may need to be cut back depending upon what her potassium level is tomorrow. I would recommend that she spend the night so we can re-evaluate her blood work tomorrow and make sure that she is continuing to diurese on oral diuretic therapy before she is discharged. This patient has a scheduled consultation with Dr. Tomy Wyatt to establish her outpatient care tomorrow at 2 o'clock, and I think she can be discharged home in the morning. DISCHARGE MEDICATIONS: 1. Aspirin. 2. Atorvastatin. 3. Lisinopril 10 mg daily. 4. Torsemide 40 mg daily. 5. Potassium probably 20 mEq daily. 6. Amlodipine 5 mg daily. 7. Carvedilol 25 mg b.i.d. This patient deserves undergoing further investigation for underlying ischemic heart disease, but at this point in time, that can be done as an outpatient. I would recommend that she see Dr. Wyatt and probably be scheduled within the next couple of weeks once she has diuresed a bit more for an outpatient exercise treadmill stress test. It would be reasonable to hold her carvedilol medication for 24-48 hours before her stress test and she should have walking exercise treadmill stress test with a nuclear medicine scan for evaluation. I would like to see her back in the office perhaps in 3-4 weeks to review her progress and to review the results of her nuclear medicine scan and make further recommendations at that time. At this time, I am going to sign off of her care with these instructions. If you have any further questions, do not hesitate to give me a call.
[2016-12-21] MEDS ORDERED: LORazepam 0.5 mg Tablet PO PRN (00:20)
--- NOTE | 2016-12-21 00:28 | PCM.PNMED ---
Subjective Date of Service Dec 21, 2016 Subjective Patient is beginning to feel better. She has no new complaints. Exam Vital Signs Vital Sign - Last Date Time Temp Pulse Resp B/P Pulse Ox O2 Delivery O2 Flow Rate FiO2 12/20/16 23:59 36.3 62 20 126/71 98 Nasal Cannula 2.00 Intake and Output 12/20/16 12/20/16 12/21/16 Cumulative From/Thru 15:00 23:00 07:00 12/16/16 12:57 - 12/20/16 18:09 Intake Total 472 ml 4194 ml Output Total 1350 ml 18903 ml Balance -878 ml -8806 ml Intake Oral 472 ml 4194 ml Output Urine Total 1350 ml 85742 ml # Voids 13 # Bowel Movements 0 1 Exam General: Patient is sitting up in a bedside chair. She maintains in no apparent distress. HEENT: Head is atraumatic and normocephalic. Eyes: Pupils are equally round and reactive to light and accommodation. Extraocular muscles are intact. Sclera are white, anicteric. Subconjunctival mucosa is pink. Ears and nose are unremarkable. Oropharynx: There is no mucosal lesions, there is no thrush, there is no pharyngitis. Neck: Is supple, there are no nodes, or masses or tenderness. Chest: Is clear to auscultation and percussion and decreased breath sounds bilaterally. There are no rales, rhonchi, wheezes or rubs appreciated. Heart: Rate, rhythm is regular. There is no new murmur, rub or gallop. However , heart tones are distant. Abdomen: Good bowel sounds are present. Abdomen is obese, soft, nontender, no organomegaly or masses were appreciated. Extremities: Are symmetrical and well perfused. There continues to be decreasing edema, there is no cellulitis, no rash. Neurologic: There are no focal neurological deficits. Cranial nerves II through XII are intact. There are no sensory or motor deficits. Psychiatric: Patients mood is calm and shows no sign of agitation. Genital: Deferred Rectal: Deferred Lab and Diagnostics Result Diagram: 12/20/1692912/20/16929 Microbiology Name: LEISA SPENCER Age/Sex: 61/F Attend Dr: Joan Lawton DO Acct: [id number] Unit: [id number] Status: AD[place] [facility] [place] Re12/16/16 Disch: Specimen: [id number] Collected: 12/16/16 Status: COMP Req#: [id number] Received: 12/16/16 Source: URINE CC Sp Desc : PP Francesco Dr: LOPEZ,ED Ordered: URINE CULT Procedure Result Verified Site Microbiology KENDAL CULT URINE Final 12/18/16 Organism 1 MIXED UROGENITAL MERY U COLONY COUNT/QUANTITY >100,000 CFU/ml X-Rays, CTs and MRIs [facility] Diagnostic Imaging [place] [address] Patient Name: LEISA SPENCER MR#: [id number] Location: [facility] [place] Ordering Phys: PHILIPP MARROQUIN MD Date of Service: 12/16/16 1416 PROCEDURE: X-RAY CHEST, TWO VIEWS ([id number]) INDICATIONS: Short of breath TECHNIQUE: 2 views of the chest were acquired. COMPARISON: None none available in the PACS system.. FINDINGS: Surgical changes and devices: None. Lungs and pleura: There is a small right pleural effusion. No effusion appreciated on the left. There is patchy density in the right lower lung field with loss of some aeration. The appearance would be most consistent with pneumonia. Pulmonary vasculature is considered normal. Left lung is considered clear. Mediastinum: Mediastinal contours are normal. Heart size is enlarged. Bones and chest wall: No suspicious bony abnormalities. Soft tissues appear unremarkable. IMPRESSION: Right lower lobe infiltrate with effusion. Pneumonia would be most likely. Followup to clearing to rule out underlying mass is suggested. Chest x- ray in 2 months would be useful. Dictated by: Toan Arias M.D. on 12/16/2016 at 15:34 Approved by: Toan Arias M.D. on 12/16/2016 at 15:35 12-lead ECG Sinus Tachy Cardiac Echo Impressions Echocardiogram Report Name: LEISA SPENCER Study Date: 12/17/2016 Height: 62 in Hospital Exam Location: [facility] Weight: 229 lb Gender: Female BSA: 2.0 m2 : 1955 Age: 61 yrs BP: 170/89 mmHg Reason For Study: Congestive Heart Failure History: Uncontrolled hypertension Ordering Physician: HOSPITALIST [facility] Performed By: Mony Parisi Referring Physician: Dr. Tomy Wyatt Interpretation Summary 1) Moderate concentric left ventricular hypertrophy with mild enlargement and moderately reduced systolic functoin (EF 35-40%). 2) Global hypokinesis that appears worse in the inferior wall and inferolateral wall. 3) Mildly dilated right ventricle with mildly reduced function. 4) Severe left atrial enlargement and moderate right atrial enlargement. 5) Mild to moderate tricuspid regurgitation present. 6) Severe pulmonary hypertension, estimated systolic pressure of 75mmHg. 7) Elevated right sided filling pressures. 8) Calcific aortic root with atherosclerotic plaque noted in the aorta. 9) Small pericardial effusion noted but there are no echocardiographic indications of cardiac tamponade. 10) Significant hypertension present during the study (BP 170/89). 11) No prior Echo available for kirillson. Assessment & Plan The patient is a 61 yo white female with history of a previous Stroke, TIA and HTN who presents with elvated troponins, Elevated BNP, and HTN with a blood pressure> 200/100, she also presented with anasarca and acute kidney injury. # Acute combined systolic and diastolic Congestive Heart Failure, present at the time of admission. Ongoing and improving -- Appears to be right sided, will diurese with Lasix 40 mg IV TID the goal of at least 2 L daily. She is given 40 mg in the ED, will give another 40 upon arrival to floor. -- Nitroglycerin bid paste, morphine 2 mg daily, morphine 4 hours when necessary for dyspnea, oxygen as needed, daily weights, accurate ins and outs, elevate head of the bed -- Echocardiogram.: Results as above remarkable for pulmonary hypertension that is severe reduced ejection fraction 30-40%. -- Troponins: Are trending downward. The slight elevation from baseline likely due to ARF, CHF and pulmonary hypertension -- Continue Telemonitoring -- A fluid restriction of 1500 cc given -- Lipid panel, A1c ordered: We will consider statin based on lipid panel: Lipid panel actually looks pretty normal. Discussed the need for statin with Dr. Massey -- Baseline ABG is ordered: Showed no concern for carbon dioxide retention # Acute renal injury: Present at the time of admission . Ongoing and stable - Monitor with AM labs, , unknown cause, will order FE Na. - Likely pre-renal # Anasarca due to liver disease versus CHF or both. -- Right sided heart failure vs. Liver failure, LFT are WNL. -- Continue to monitor -- Patient says she is starting to feel better -- Ammonia levels were ordered came back elevated: Lactulose twice a day is ordered -- Hepatitis panel is ordered with results of pending -= INR is slightly elevated consider vitamin K -- CT of chest, abdomen, pelvis is ordered as well as ultrasound of abdomen, ascites protocol: Did not show much evidence of 2 much fluid recommendation for radiology. Unable to do IV contrast due to poor renal function unable to do by mouth contrast due to her fluid restriction The ascites likely secondary to fatty liver versus Wilson -- Hepatitis panel ordered -- LFTs are normal at the time of admission continue to monitor -- Monitor INR and consider vitamin K Hyperammonia syndrome: -- Lactulose is ordered as above Acute kidney failure: FENa lab work shows prerenal etiology -- Hold off on nephrotoxic medications, they no longer using enalapril at this point -- Continue to monitor with daily labs -- Consider consulting nephrology tomorrow a.m. as this may worsen due to continued diuresis Elevated troponins: These are liekly due to CHF and ARF -- Trend cardiac enzymes --Telemonitoring Acute hypertensive urgency: -- She is given lisinopril 20 mg in the emergency room by mouth: She did better on enalapril IV but currently holding off adam inhibitors due to poor renal function -- Metoprolol 25 mg twice a day has been changed to Carvedilol 25 mg by mouth twice a day -- Continue lisinopril 20 mg daily -- Spironolactone 25 mg daily has been discontinued -- Consult and cardiology and discussed the case with Dr. Massey recommends that we use hydralazine acutely to get her blood pressure down. We appreciate the recommendation hydralazine 25 mg every 6 hours when necessary with parameters ordered. Cardiology consult obtained for [address] Maximo Hickman and appreciate and will follow his recommendations. Present on admission severe pulmonary hypertension -- (This is per Dr. Massey report -- Continue hydralazine when necessary -- See Dr. Maximo Hickman's current recommendations Anxiety present at admission -- Morphine will help with this -- 1 time dose of Ativan 0.5 mg PO is given upon arrival to floor HTN: As above History of CVA: -- Will continue statin as discussed above -- Continue daily aspirin CODE STATUS: CPR okay but she does not want mechanical ventilation Alternate decision-maker: Mom Disposition: Patient is much improved today , discharge based on cardiology recommendations. Pain Evaluation: Adequate Pain Control GI Prophylaxis: H2 sera VTE Mechanical Devices: Venous Foot Pump Resuscitation Status: CPR: Attempt Resuscitation (does not want intubation or ventilaiton) Nash Carrasquillo MD Dec 21, 2016 00:28
--- NOTE | 2016-12-21 02:37 | NUR ---
PT ACTIVITY/ANXIETY Pt has remained in room during shift. Pt has slept on couch, as pt finds this position is more comfortable for pt and easier for her to get up to the BR. Pt has been up in room, independent, tolerates activity. Pt again c/o anxiety and wanting dose of lorazepam. Noc hospitalist paged for orders for lorazepam. Orders rec'd, dose administered, pt able to go back to sleep. Continue to monitor. Call light in reach. Intentional rounding.
[2016-12-21] MEDS: Heparin 5,000 Unit/mL Inj SUBQ SCH ×2 (04:27→12:30)
[2016-12-21 04:34] VITALS: BP 143/76; PULSE 65; RESP 20; O2SAT 97
[2016-12-21 04:35] VITALS: BP 131/86; PULSE 66
[2016-12-21 05:45] VITALS: PULSE 56
[2016-12-21 06:01] LABS: BASOPHILS % (AUTO) 0.4 % (0-3); EOSINOPHILS % (AUTO) 1.9 % (0-5); MONOCYTES % (AUTO) 13.6 % (4-12); Mean Corpuscular Hemoglobin 30.9 pg (27.0-35.0); NEUTROPHILS % (AUTO) 68.1 % (40-74); Platelet Count 128 bil/L (150-400)
[2016-12-21 06:27] LABS: Magnesium 1.8 mg/dL (1.6-2.6)
[2016-12-21 08:00] VITALS: PULSE 64
[2016-12-21] MEDS ORDERED: Potassium Chloride 20 mEq SR Tablet PO SCH (08:00)
[2016-12-21 08:51] VITALS: BP 121/73; PULSE 71; RESP 19; O2SAT 95
[2016-12-21] MEDS: Nitroglycerin 2% 1 Gm Ointment TOPICAL SCH (09:24)
[2016-12-21] MEDS: Sodium Chloride LOK Flush 10 mL Syringe IVFLUSH SCH (09:24)
[2016-12-21] MEDS: Lactulose 20 Gm/30 mL 30 mL Syrup PO SCH (09:25)
[2016-12-21 12:55] VITALS: BP 123/67; PULSE 57; RESP 18; O2SAT 91
--- NOTE | 2016-12-21 12:56 | NUR ---
O2 Needs Pt on 1.5L NC with SpO2 of 93%. Plan for discharge today. Place pt on RA to assess O2 needs. Tolerates well on RA - SpO2 at 91%, denies SOB.
--- NOTE | 2016-12-21 14:25 | PCM.DIMED ---
Discharge Instructions Date of Service Dec 21, 2016 Dates of Hospitalization Dec 16, 2016 at 18:09 Discharge Diagnosis Discharge Diagnosis Congestive heart failure with Anasarca Diet Heart Healthy Activity No restrictions (The patient may return to her usual activities grdually as tolerated.) Call your provider Fever or Chills, Shortness of breath, Bleeding, Chest pain, Vomitting, Excessive diarrhea, Weakness (unilateral), Other Patient Instructions Follow-up Provider: Tomy Wyatt MD Follow-up with PCP in: 1 week Provider: Maximo Hickman MD Follow-up in: 2 weeks (For Cardiology follow up.) Nash Carrasquillo MD Dec 21, 2016 14:25
[2016-12-21] MEDS ORDERED: POLY17PO6 PO (14:32)
[2016-12-21] MEDS ORDERED: ATOR40TA69 PO (14:32)
[2016-12-21] MEDS ORDERED: POTA20TA16 PO (14:32)
[2016-12-21] MEDS ORDERED: LISI-571 PO (14:32)
[2016-12-21] MEDS ORDERED: LACT10SO60 PO (14:32)
[2016-12-21] MEDS ORDERED: CARV25TA2 PO (14:32)
[2016-12-21] MEDS ORDERED: AMLO5TAB2 PO (14:32)
[2016-12-21] MEDS ORDERED: TORS20TA PO (14:32)
[2016-12-21] MEDS ORDERED: FAMO20T PO (14:32)
--- NOTE | 2016-12-21 14:36 | NUR ---
Social Work: Discharge Data: Pt is on day 5 of hospitalization. EMR reviewed. D/C orders are in. No d/c planning needs at this time. [employer] will continue to follow if needs arise. Assessment: Pt who is independent at baseline. Plan: Pt will d/c home via POV today. No d/c planning needs at this time. [employer] will continue to follow if needs arise. DARIO Adame
--- NOTE | 2016-12-21 15:51 | NUR ---
Discharge Reviewed discharge paperwork, care notes, and medications with disclaimer signed. IV DCd intact, tele removed, all belongings with pt. No s/sx of distress, no c/o pain, pt steady on feet. Taken curbside via at 1540, Daughter and Son-in law driving home.
--- NOTE | 2016-12-22 00:28 | PCM.DC.MED ---
Discharge Summary Date of Service Dec 21, 2016 Dates of Hospitalization Date of Hospital Admission Dec 16, 2016 at 18:09 Date of Discharge: Dec 21, 2016 Providers: Admitting Physician: Joan Lawton DO Primary Care Physician: Tomy Wyatt MD Attending Physician: Joan Lawton DO Diagnosis at Time of Discharge Diagnosis at Time of Discharge Congestive heart failure with Anasarca Consultations Cardiology consult with Dr. Maximo Hickman Procedures XRay, CTs & MRIs [facility] Diagnostic Imaging [place] [address] Patient Name: LEISA SPENCER MR#: [id number] Location: [facility] Ordering Phys: DOC, ED MD Date of Service: 12/16/16 1416 PROCEDURE: X-RAY CHEST, TWO VIEWS ([id number]) INDICATIONS: Short of breath TECHNIQUE: 2 views of the chest were acquired. COMPARISON: None none available in the PACS system.. FINDINGS: Surgical changes and devices: None. Lungs and pleura: There is a small right pleural effusion. No effusion appreciated on the left. There is patchy density in the right lower lung field with loss of some aeration. The appearance would be most consistent with pneumonia. Pulmonary vasculature is considered normal. Left lung is considered clear. Mediastinum: Mediastinal contours are normal. Heart size is enlarged. Bones and chest wall: No suspicious bony abnormalities. Soft tissues appear unremarkable. IMPRESSION: Right lower lobe infiltrate with effusion. Pneumonia would be most likely. Followup to clearing to rule out underlying mass is suggested. Chest x- ray in 2 months would be useful. Dictated by: Toan Arias M.D. on 12/16/2016 at 15:34 Approved by: Toan Arias M.D. on 12/16/2016 at 15:35 ECG 12 Lead Sinus Tachy Cardiac Echo Impression Echocardiogram Report Name: LEISA SPENCER Study Date: 12/17/2016 Height: 62 in Hospital Exam Location: [facility] Weight: 229 lb Gender: Female BSA: 2.0 m2 : 1955 Age: 61 yrs BP: 170/89 mmHg Reason For Study: Congestive Heart Failure History: Uncontrolled hypertension Ordering Physician: [facility]OSPITALIST [facility] Performed By: Mony Parisi Referring Physician: Dr. Tomy Wyatt Interpretation Summary 1) Moderate concentric left ventricular hypertrophy with mild enlargement and moderately reduced systolic functoin (EF 35-40%). 2) Global hypokinesis that appears worse in the inferior wall and inferolateral wall. 3) Mildly dilated right ventricle with mildly reduced function. 4) Severe left atrial enlargement and moderate right atrial enlargement. 5) Mild to moderate tricuspid regurgitation present. 6) Severe pulmonary hypertension, estimated systolic pressure of 75mmHg. 7) Elevated right sided filling pressures. 8) Calcific aortic root with atherosclerotic plaque noted in the aorta. 9) Small pericardial effusion noted but there are no echocardiographic indications of cardiac tamponade. 10) Significant hypertension present during the study (BP 170/89). 11) No prior Echo available for comparson. Brief History Pt is a 61 y/o female w/ a hx of uncontrolled HTN, CVA, TIA, presenting to the ED c/o SOB onset 1 week ago. She is completely lost to follow up. She states she has to work 130-150 hrs a week to amke ends meet and has a lot of issues, mainly financial with her children. She c/o associated lower extremity edema, abdominal distention, dyspnea on exertion, orthopnea. She does admit to having a less intense version of these symptoms She denies CP, abdominal pain, extremity pain, fever, chills, cough. She has no history of CAD or heart failure. She experienced a CVA years ago which was thought to be caused by uncontrolled hypertension. She was subsequently placed on antihypertensives but lost weight and took herself off of them that same year. She does state that she has been very stressed recently. Her daughter is with a downs baby and daughter's significant other has no job. Last bowel movement was 3 days ago , normally she has them every two days. Denies urinary symptoms, chest pain. When asked if she had DM II, she stated "probably". She has no residual symptoms from her stroke (states she had a stroke, ignored itr and went to work and then had a second one at work ten years ago.) Patient after evaluation in the emergency room was admitted to the hospital service for further evaluation and treatment. Hospital Course The patient is a 61 yo white female with history of a previous Stroke, TIA and HTN who presents with elvated troponins, Elevated BNP, and HTN with a blood pressure> 200/100, she also presented with anasarca and acute kidney injury. # Acute combined systolic and diastolic Congestive Heart Failure, present at the time of admission. Ongoing and improving -- Appears to be right sided, will diurese with Lasix 40 mg IV TID the goal of at least 2 L daily. She is given 40 mg in the ED, will give another 40 upon arrival to floor. -- Nitroglycerin bid paste, morphine 2 mg daily, morphine 4 hours when necessary for dyspnea, oxygen as needed, daily weights, accurate ins and outs, elevate head of the bed -- Echocardiogram.: Results as above remarkable for pulmonary hypertension that is severe reduced ejection fraction 30-40%. -- Troponins: Are trending downward. The slight elevation from baseline likely due to ARF, CHF and pulmonary hypertension -- Continue Telemonitoring -- A fluid restriction of 1500 cc given -- Lipid panel, A1c ordered: We will consider statin based on lipid panel: Lipid panel actually looks pretty normal. Discussed the need for statin with Dr. Massey -- Baseline ABG is ordered: Showed no concern for carbon dioxide retention # Acute renal injury: Present at the time of admission . Ongoing and stable - Monitor with AM labs, , unknown cause, will order FE Na. - Likely pre-renal # Anasarca due to liver disease versus CHF or both. -- Right sided heart failure vs. Liver failure, LFT are WNL. -- Continue to monitor -- Patient says she is starting to feel better -- Ammonia levels were ordered came back elevated: Lactulose twice a day is ordered -- Hepatitis panel is ordered with results of pending -= INR is slightly elevated consider vitamin K -- CT of chest, abdomen, pelvis is ordered as well as ultrasound of abdomen, ascites protocol: Did not show much evidence of 2 much fluid recommendation for radiology. Unable to do IV contrast due to poor renal function unable to do by mouth contrast due to her fluid restriction The ascites likely secondary to fatty liver versus Wilson -- Hepatitis panel ordered -- LFTs are normal at the time of admission continue to monitor -- Monitor INR and consider vitamin K Hyperammonia syndrome: -- Lactulose is ordered as above Acute kidney failure: FENa lab work shows prerenal etiology -- Hold off on nephrotoxic medications, they no longer using enalapril at this point -- Continue to monitor with daily labs -- Consider consulting nephrology tomorrow a.m. as this may worsen due to continued diuresis Elevated troponins: These are liekly due to CHF and ARF -- Trend cardiac enzymes --Telemonitoring Acute hypertensive urgency: -- She is given lisinopril 20 mg in the emergency room by mouth: She did better on enalapril IV but currently holding off adam inhibitors due to poor renal function -- Metoprolol 25 mg twice a day has been changed to Carvedilol 25 mg by mouth twice a day -- Continue lisinopril 20 mg daily -- Spironolactone 25 mg daily has been discontinued -- Consult and cardiology and discussed the case with Dr. Massey recommends that we use hydralazine acutely to get her blood pressure down. We appreciate the recommendation hydralazine 25 mg every 6 hours when necessary with parameters ordered. Cardiology consult obtained for [address] Maximo Hickman and appreciate and will follow his recommendations. Present on admission severe pulmonary hypertension -- (This is per Dr. Massey report -- Continue hydralazine when necessary -- See Dr. Maximo Hickman's current recommendations Anxiety present at admission -- Morphine will help with this -- 1 time dose of Ativan 0.5 mg PO is given upon arrival to floor HTN: As above History of CVA: -- Will continue statin as discussed above -- Continue daily aspirin CODE STATUS: CPR okay but she does not want mechanical ventilation Alternate decision-maker: Mom Disposition: Patient is discharged home today. Exam Vital Signs (Last) Date Time Temp Pulse Resp B/P Pulse Ox O2 Delivery O2 Flow Rate FiO2 12/21/16 12:55 36.6 57 18 123/67 91 Room Air 12/21/16 08:51 2.00 Exam General: Patient is sitting up in a bedside chair. She remains in no apparent distress. HEENT: Head is atraumatic and normocephalic. Eyes: Pupils are equally round and reactive to light and accommodation. Extraocular muscles are intact. Sclera are white, anicteric. Subconjunctival mucosa is pink. Ears and nose are unremarkable. Oropharynx: There is no mucosal lesions, there is no thrush, there is no pharyngitis. There is less facial edema today and appears to be at baseline. Neck: Is supple, there are no nodes, or masses or tenderness. Chest: Is clear to auscultation and percussion and decreased breath sounds bilaterally. There are no rales, rhonchi, wheezes or rubs appreciated. Heart: Rate, rhythm is regular. There is no new murmur, rub or gallop. However , heart tones are distant. Abdomen: Good bowel sounds are present. Abdomen is obese, soft, nontender, no organomegaly or masses were appreciated. Extremities: Are symmetrical and well perfused. There continues to be decreasing edema, there is no cellulitis, no rash. Neurologic: There are no focal neurological deficits. Cranial nerves II through XII are intact. There are no sensory or motor deficits. Psychiatric: Patients mood is calm and shows no sign of agitation. Genital: Deferred Rectal: Deferred Test 12/16/16 14:47 12/16/16 17:50 12/17/16 06:12 12/17/16 08:58 Procalcitonin 0.06ng/mL (0.00-0.08) Thyroid Stimulating Hormone (TSH) 4.910uIU/mL (0.450-4.500) Hold Carpenter Top Tube Received (Received) Urine Color Dark yellow (YELLOW) Urine Appearance Hazy (CLEAR,HAZY) Urine pH 6.0 (5.0-8.0) Urine Specific [place] 1.030 (1.003-1.035) Urine Protein 100mg/dL (NEG,TRACE) Urine Glucose (UA) Negativemg/dL (NEGATIVE) Urine Ketones Tracemg/dL (NEGATIVE) Urine Occult Blood Small (NEGATIVE) Urine Nitrite Negative (NEGATIVE) Urine Bilirubin Negative (NEGATIVE) Urine Urobilinogen Normalmg/dL (NORMAL) Urine Leukocyte Esterase Small (NEGATIVE) Urine RBC 0-2/hpf (0-2) Urine WBC 0-5/hpf (0-5) Urine Epithelial Cells Few/hpf (NONE-MOD) Urine Crystals None seen (NONE SEEN) Urine Bacteria Few/hpf (NONE-FEW) Urine Hyaline Casts None/lpf (NONE) Urine Granular Casts None seen (NONE SEEN) Urine Waxy Casts None seen (NONE SEEN) Urine Red Blood Cell Casts None seen (NONE SEEN) Urine White Blood Cell Casts None seen (NONE SEEN) Urine Mucus Present (None Seen) Urine Trichomonas None seen (NONE SEEN) Urine Yeast None (NONE SEEN) Urinalysis Comment None Urine Culture Reflexed Indicated Urine Random Creatinine 190mg/dL (15-278) Urine Random Sodium 76mEq/L Hemoglobin A1c 6.0% (4.8-5.6) Troponin T 0.034ug/L (0.0-0.011) Triglycerides Level 73mg/dL (0-149) Cholesterol Level 116mg/dL (100-199) LDL Cholesterol, Calculated 61.400mg/dL (0-99) VLDL Cholesterol 14.600mg/dL HDL Cholesterol 40mg/dL (>39) Cholesterol/HDL Ratio 2.90 (0.0-4.4) Reticulocyte Count,Calculated 1.8% (0.6-2.6) Iron Level 46ug/dL (35-150) Total Iron Binding Capacity 324ug/dL (250-450) Percent Iron Saturation 14%sat (15-50) Unsaturated Iron Binding 277.7ug/dL Ferritin 101ng/mL (13-150) Vitamin B12 Level 712pg/mL (211-946) Folate > 19.9ng/mL (>3.0) Hepatitis A IgM Antibody Negative (Negative) Hepatitis B Surface Antigen Negative (Negative) Hepatitis B Core IgM Antibody Negative (Negative) Hepatitis C Antibody <0.1s/co ratio (0.0-0.9) Hepatitis C Comment Comment (.) Test 12/17/16 18:15 12/17/16 20:49 12/19/16 05:45 12/20/16 09:30 Prothrombin Time 13.2sec (8.1-12.5) Prothromb Time International Ratio 1.23ratio Activated Partial Thromboplast Time 27.4sec (22.8-33.0) Total Creatine Kinase 110U/L (21-215) Creatine Kinase MB 4.4ng/mL (0.0-5.3) Creatine Kinase MB % % (0.0-5.0) Phosphorus Level 3.9mg/dL (2.5-4.9) Ammonia 55ug/dL (18-53) Pro-B-Type Natriuretic Peptide 3154pg/mL (0-287) Test 12/21/16 05:30 White Blood Count 4.6th/mm3 (3.8-10.1) Red Blood Count 3.24mil/mm3 (3.90-5.20) Hemoglobin 10.0g/dL (12.0-15.6) Hematocrit 32.4% (35.0-46.0) Mean Corpuscular Volume 100.0fL (81-100) Mean Corpuscular Hemoglobin 30.9pg (27.0-35.0) Mean Corpuscular Hemoglobin Concent 30.9% (32.0-37.0) Red Cell Distribution Width 15.7% (12.3-15.4) Platelet Count 128bil/L (150-400) Neutrophils (%) (Auto) 68.1% (40-74) Lymphocytes (%) (Auto) 15.8% (14-46) Monocytes (%) (Auto) 13.6% (4-12) Eosinophils (%) (Auto) 1.9% (0-5) Basophils (%) (Auto) 0.4% (0-3) Sodium Level 140mEq/L (134-144) Potassium Level 4.2mEq/L (3.5-5.2) Chloride Level 100mEq/L (97-108) Carbon Dioxide Level 26mmol/L (18-29) Blood Urea Nitrogen 27mg/dL (8-27) Creatinine 1.58mg/dL (0.57-1.00) Estimat Glomerular Filtration Rate 47mL/min (>59) Glucose Level 103mg/dL (60-99) Calcium Level 8.3mg/dL (8.5-10.1) Magnesium Level 1.8mg/dL (1.6-2.6) Total Bilirubin 0.5mg/dL (0.0-1.2) Aspartate Amino Transf (AST/SGOT) 24U/L (0-50) Alanine Aminotransferase (ALT/SGPT) 14U/L (0-32) Alkaline Phosphatase 126U/L (25-165) Total Protein 6.1g/dL (6.4-8.4) Albumin 3.1g/dL (3.4-5.0) Microbiology Results Name: LEISA SPENCER Age/Sex: 61/F Attend Dr: Joan Lawton DO Acct: [id number] Unit: [id number] Status: ADM IN Location: [facility] [place] 3027-1 Re12/16/16 Disch: Specimen: [id number] Collected: 12/16/16 Status: COMP Req#: [id number] Received: 12/16/16 Source: URINE CC Sp Desc : DEISI Maya Dr: LOPEZ,PHILPIP CLEARY Ordered: URINE CULT Procedure Result Verified Site Microbiology KENDAL CULT URINE Final 12/18/16 Organism 1 MIXED UROGENITAL MERY U COLONY COUNT/QUANTITY >100,000 CFU/ml Discharge Medications Discharge Medications Amlodipine (Amlodipine) 5 Mg Tablet 5 MG PO DAILY Prescribed by: SHERINE CARRASQUILLO MD Aspirin (Aspirin) 81 Mg Tablet 81 MG PO DAILY (Reported) Atorvastatin Calcium (Atorvastatin Calcium) 40 Mg Tablet 40 MG PO HS Prescribed by: SHERINE CARRASQUILLO MD Carvedilol (Carvedilol) 25 Mg Tablet 25 MG PO BIDWM Prescribed by: SHERINE CARRASQUILLO MD Famotidine (Pepcid) 20 Mg Tablet 20 MG PO DAILY Prescribed by: SHERINE CARRASQUILLO MD Lactulose (Lactulose) 20 Gm/30 Ml Solution 10 GM PO BID Prescribed by: SHERINE CARRASQUILLO MD Lisinopril (Lisinopril) 5 Mg Tablet 10 MG PO DAILY Prescribed by: SHERINE CARRASQUILLO MD Potassium Chloride (Potassium Chloride) 20 Meq Tab.er.prt 20 MEQ PO DAILYWM Prescribed by: SHERINE CARRASQUILLO MD Torsemide (Demadex) 20 Mg Tablet 40 MG PO DAILY Prescribed by: SHERINE CARRASQUILLO MD As needed Polyethylene Glycol 3350 (Miralax) 17 Gm Powd.pack 17 GM PO DAILY PRN PRN For Constipation Prescribed by: SHERINE CARRASQUILLO MD Followup Plan Disposition: Patient is being discharged home. Discharge Diet: Heart Healthy Discharge Activity: No restrictions (The patient may return to her usual activities grdually as tolerated.) Follow-up Provider: Tomy Wyatt MD Follow-up with PCP in: 1 week Provider: Maximo Hickman MD Follow-up in: 2 weeks (For Cardiology follow up.) Time spent Time spent on discharging this patient was greater than 35 minutes, over half of which was involved in counseling and coordination of care. Nash Carrasquillo MD Dec 22, 2016 00:28
== END 2016-12-21 15:49 | disposition home or self-care (01) | DRG 292 ==
LOC: SED 12:47 → OBSVTOIN 18:09 → MPC 18:09
PROVIDERS: ADMIT Family Medicine; ATTEND Family Medicine
PROC: 4A033R1 Measurement of Arterial Saturation, Peripheral, Percutaneous Approach (ICD-10-PCS; principal; 2016-12-16)
DX: I50.43 Acute on chronic combined systolic (congestive) and diastolic (congestive) heart failure (principal); N17.9 Acute kidney failure, unspecified; I10 Essential (primary) hypertension; Z86.73 Personal history of transient ischemic attack (TIA), and cerebral infarction without residual deficits; R60.1 Generalized edema; I16.0 Hypertensive urgency; F41.9 Anxiety disorder, unspecified